=== PATIENT | male | born 1980 | race Caucasian/White ===

== ENCOUNTER → 2020-11-23 15:41 | Outpatient (CLI) | payer OTHER, SELFPAY ==
--- NOTE | ~2020-11-23 | CT_ITS ---
EXAMINATION: CT sinus wo con DATE: 11/23/2020 15:52 INDICATION: Nasal congestion. Deviated nasal septum. TECHNIQUE: Computed tomography (CT) of the paranasal sinuses was performed without intravenous contra st. The dose-length product was 314.51 mGy-cm. Automated exposure control and iterative reconstructio n technique were employed. COMPARISON: CT dated 07/13/2010 FINDINGS: Rightward nasal septal deviation. There is mild mucosal thickening of the ethmoid air cells and maxillary sinuses. No significant air-fluid level. No mucoperiosteal reaction. Mastoids are pneu matized. Ostiomeatal units are patent. IMPRESSION: 1. Mild sinus disease primarily involving the ethmoid and maxillary sinuses. 2: Rightward nasal septal deviation. Reviewed, dictated and finalized at location A.
== END ==
PROVIDERS: PCP Family Medicine; Visit Provider Otolaryngology
DX: J34.3 Hypertrophy of nasal turbinates (principal); J34.2 Deviated nasal septum; R09.81 Nasal congestion; J34.89 Other specified disorders of nose and nasal sinuses; R44.8 Other symptoms and signs involving general sensations and perceptions; R51.9 Headache, unspecified
CPT/HCPCS: 70486

== ENCOUNTER 2021-01-11 01:02 | Day surgery (SDC) | payer OTHER, SELFPAY ==
[2021-01-04 14:25] VITALS: BMI 24.4
--- NOTE | 2021-01-06 07:48 | PM.IMHP ---
H&P: HPI History of Present Illness Date/Time: 01/06/21 07:48 Chief Complaint: Chronic sinusitis, recurrent sinusitis, maxillary sinusitis ethmoidal sinusitis, septal deviation, inferior turbinate hypertrophy, nasal congestion, nasal obstruction. Narrative: Patient presents for planned surgical procedures. No change in symptoms no change in medical history. Review of Systems Constitutional: Constitutional: Denies fatigue, Denies fever(s) and Denies lethargy Eyes: Eyes: Denies blurry vision and Denies change in vision ENT: Reports as per HPI Cardiovascular: Cardiovascular: Denies chest pain Respiratory: Respiratory: Denies cough Endocrine: Endocrine: Denies fatigue Hematologic/Lymphatic: Hematologic/Lymphatic: Denies easy bleeding, Denies easy bruising and Denies lymphadenopathy Allergic/Immunologic: Allergic/Immunologic: Denies seasonal rhinorrhea PENDING SALE TO [facility] Past Medical History Medical History Attention deficit disorder (ADD) in adult Social History Social History Years smoked: 10 Smoking status: Former smoker Tobacco type: cigarettes Smoking end date: 01/05/16 Alcohol intake: current Drinks per week: 10 Living arrangements: with family Spiritual care concerns: No Meds Home Medications and Allergies Home Medications Medication Instructions Recorded Confirmed Type fluticasone propionate 50 2 spray INTRANASAL BID #16 ml 10/20/20 01/04/21 Rx mcg/actuation nasal spray,suspension dextroamphetamine-amphetamine 10 10 mg PO BID #60 tablet 12/31/20 01/04/21 Rx mg tablet Allergies Allergy/AdvReac Type Severity Reaction Status Date / Time Penicillins Allergy Unknown Unknown Verified 01/04/21 14:18 Exam Const: General: cooperative, healthy appearing, comfortable, well developed and alert HENMT: Head: normal to inspection, normocephalic and atraumatic Ears: hearing grossly normal bilaterally, external ears normal, TM's normal bilaterally and EAC's normal General nose exam: Normal external nose present, Normal nares present, No nasal polyps present and Other nasal findings present ( Inferior turbinate hypertrophy septal deviation.) Face and sinus: normal facial exam Mouth: Yes Normal oral and palatal mucosa present, Yes lip normal, Yes tongue normal, Yes oropharynx normal and Yes moist mucous membranes Teeth and gingiva: dentition normal and gingiva normal Throat: posterior oropharynx normal, tonsils normal and uvula midline Eyes: General: appearance normal, both eyes and all related structures Periorbital: periorbital findings normal Eyelids: eyelids normal Conjunctivae: conjunctivae normal Sclera: sclerae normal Neck: Neck: normal visual inspection, full ROM and no lymphadenopathy Thyroid: thyroid normal Lymphatic: no lymphadenopathy noted Resp: Effort & Inspection: normal respiratory effort and able to speak in complete sentences Cardio: Jugular venous distension: no JVD Neuro: Cranial nerves: Yes CN's II-XII intact bilaterally Assessment and Plan Assessment and plan (1) Hypertrophy of both inferior nasal turbinates: Code(s): J34.3 - Hypertrophy of nasal turbinates Status: Acute Assessment and Plan: plan is for the OR for image guided bilateral maxillary antrostomies total ethmoidectomies inferior turbinate reduction with outfracture submucosally and endoscopic assisted septoplasty total operative time 1.5 hours. Risks were discussed with the patient including obvious costs bleeding infection postoperative bleeding postoperative pain failure to resolve symptoms of migraine variant CSF leak brain damage blindness change in vision need for further procedures. Patient voiced understanding of these risks and agreed septal perforation was also discussed. Will need the image guided microdebrider. (2) Nasal septal deviation: Code(s): J34.
--- NOTE | 2021-01-10 16:17 | P.PNAN_ITS ---
Anes - Initial Pre Proc Eval Procedure: Operation Date: 01/11/21 07:30 Proposed Procedures p Endoscopic Septoplasty - Placido Yanez MD s CT Guided Total Ethmoidectomy, Bilateral Inferior Turbinectomy, Bilateral Maxillary Antrostomy - Placido Yanez MD Date/Time: 01/10/21 16:17 Surgeon: Placido Yanez MD Pre Op Diagnosis: Chronic Sinusitis Patient Data Age: 40 Gender: M Height: 1.91 m Weight: 88.6 kg Allergies Allergy/AdvReac Type Severity Reaction Status Date / Time Penicillins Allergy Unknown Unknown Verified 01/04/21 14:18 Home Medications Medication Instructions Recorded Confirmed Type fluticasone propionate 50 2 spray INTRANASAL BID #16 ml 10/20/20 01/04/21 Rx mcg/actuation nasal spray,suspension dextroamphetamine-amphetamine 10 10 mg PO BID #60 tablet 12/31/20 01/04/21 Rx mg tablet Patient hx anesthesia problems: none Family hx anesthesia problems: none Results Review: All pre-operative results and documents have been reviewed as part of the pre-operative evaluation. [facility] Past Medical History Medical History Attention deficit disorder (ADD) in adult Social History Social History Years smoked: 10 Smoking status: Former smoker Tobacco type: cigarettes Smoking end date: 01/05/16 Alcohol intake: current Drinks per week: 10 Living arrangements: with family Spiritual care concerns: No Anes - Eval Final PreProcedure Day of Procedure 01/10/21 16:17 Patient weight: normal Heart: regular rate and rhythm Lungs: clear to auscultation and normal air movement Airway: Mallampati scale class II Neurological: alert and oriented Last oral intake: >/= 8 hours ASA classification: II Emergent: no Anesthetic plan: proceed Anesthesia type and monitoring: general ETT Results Review: All pre-operative results and documents have been reviewed as part of the pre-operative evaluation. Informed Consent: The patient's anesthetic plan and its attendant risks and benefits were discussed with the patient/family/POA. Questions were solicited and answers provided to the satisfaction of the patient/family/POA.
[2021-01-11] VITALS (7 sets, daily range): BP systolic 121–160; BP diastolic 79–106; PULSE 73–94; RESP 10–18; TEMP 36.3–36.4; O2SAT 94–100
[2021-01-11] MEDS: ACETAMINOPHEN 500 MG TABLET 1000 MG PO (06:40)
[2021-01-11] MEDS: LACTATED RINGERS 1,000 ML 30 ML IV CONT ×2 (06:40→09:52)
--- NOTE | 2021-01-11 07:08 | WPDHPUPDATE1 ---
History and Physical Update Update Date/Time: 01/11/21 07:08 History and Physical has been reviewed, including an updated exam of the patient. There are NO changes in the patient's condition. Risks, benefits, and alternatives have been discussed and questions answered. Patient agrees to proceed with procedure.
[2021-01-11] MEDS: ceFAZolin 2 GM/D5W 50 ML 2 GM/50 ML BAG IVPB (07:25)
[2021-01-11] MEDS: OXYMETAZOLINE HCL 0.05% NAS 15 ML BTL (*BKC) 1 SPRAY NASAL (07:42)
[2021-01-11] MEDS: LIDO 1%/EPINEPHRINE 1:100,000 50 ML VIAL INFILTRATE (08:32)
--- NOTE | 2021-01-11 09:32 | W.PM.PROC2 ---
Procedure Note - Detailed Date of Procedure 01/11/21 Pre-op Diagnosis Chronic Sinusitis, recurrent sinusitis, nasal congestion, nasal obstruction, inferior turbinate hypertrophy, septal deviation Post-op Diagnosis same Procedure Performed 1. Bilateral endoscopic image guided maxillary antrostomies 2. Bilateral endoscopic image guided total ethmoidectomies 3. Endoscopic assisted septoplasty 4. Bilateral inferior turbinate submucosal resection with outfracture Surgeon Placido Yanez MD Piping Drafter None Anesthesia general Indications See above Findings Severely bilateral deviated septum left inferior right superior small per from the right with no concomitant perform the left following septoplasty. Good turbinate reduction. Mucoid purulence in the right posterior ethmoid air cell. Description of Procedure The patient was correctly identified thin verified in the preoperative holding area. Patient was then brought to the operating room time-out performed. General anesthesia was induced and endotracheal tube was secured the patient's airway and taped to the left lower lip. Image guidance was initiated. Patient was then prepped and draped for the aforementioned procedures. Second time-out performed. Afrin-soaked pledgets placed in the bilateral nasal passages and allowed to sit for 5 minutes then removed. The septum was so deviated which was visible with 0 degree endoscope that the septoplasty was performed 1st. 8 cc 1% lidocaine with 1 100,000 parts epinephrine injected in the bilateral septum in the mucoperichondrial plane. Alleene incision made left on on the left. Left-sided mucoperichondrial flap elevated with no perforation septum crossed over with caudal right side elevated small perf on the right. Deviated septum removed with Venancio Coleman forceps deep blade 15 blade osteotome and Cordelia forceps. Very very good correction following procedure with no perforations bilaterally. Anterior bony septum was trimmed using osteotome as well as placed in the midline using [place] elevator. Maxillary antrostomies were performed bilaterally using double ball tip probe following medialization of the middle turbinates double ball tip probe as well as straight through cut backbiter and microdebrider with Tri cut blade which was also image guided. The total ethmoidectomies were performed under image guidance using Sophiris Biorison microdebrider Cordelia forceps. All the air cells were opened. This was performed bilaterally. Of note on the right side there was purulence and mucus in 1 of the posterior ethmoid air cells. The skull base and orbits were not violated. This was confirmed with image guidance as well as endoscopically. Turbinates were entered the inferior turbinates were entered bilaterally they were entered anteriorly using the 2 mm turbinate blade on the microdebrider. They were debrided in the submucosal plane and then outfractured using the [place] elevator. Good reduction was noted. Of note the bilateral inferior turbinates had significant mulberry tips these were cauterized using suction Bovie electrocautery at a setting of 15. Palm splints were placed and endoscopically placed lateral to the middle turbinates. They were sutured anteriorly using a 3-0 mattress nylon suture. Prior to the placement of the Palm splints the Alleene incision on the left of the septum was closed using 3 interrupted 5 0 fast gut sutures. The bilateral nasal passages were suctioned the posterior choana. Hemostasis was excellent. This marked end of the procedure care of the patient was turned over to Anesthesiology. Total blood loss 20 cc. I performed all dictated portions of the procedure. There were no complications. Estimated Blood Loss 20 Drains No Packing No Pathology none sent Complications No immediate complications Condition stable Disposition PACU
[2021-01-11] MEDS: fentaNYL CITRATE INJ (*CRX) 100 MCG/2 ML VIAL 25 MCG IV PUSH ×4 (09:48→10:10)
--- NOTE | 2021-01-11 10:13 | SUR.PHASEI ---
Dr. Ruggiero notified of elevated BP and said to continue to monitor at this time.
== END 2021-01-11 11:00 | disposition home or self-care (01) ==
PROVIDERS: PCP Family Medicine; Visit Provider Otolaryngology
PROC: (CPT 30520; principal; 2021-01-11 07:30)
PROC: (CPT 30140; 2021-01-11 07:30)
DX: J32.9 Chronic sinusitis, unspecified (principal); J34.3 Hypertrophy of nasal turbinates; J34.2 Deviated nasal septum; J34.89 Other specified disorders of nose and nasal sinuses; R09.81 Nasal congestion; F98.8 Other specified behavioral and emotional disorders with onset usually occurring in childhood and adolescence; Z87.891 Personal history of nicotine dependence
CPT/HCPCS: 30140; 30520; 31256; 31255; 61782; A9270; J0330; J0690; J1100; J2001; J2250; J2405; J2704; J3010; J7120

== ENCOUNTER → 2021-07-05 10:43 | Outpatient (CLI) | payer OTHER, SELFPAY ==
--- NOTE | ~2021-07-05 | US_ITS ---
EXAMINATION: US abdomen complete EXAM DATE: 07/05/2021 11:08 INDICATION: R74.8 - Abnormal levels of other serum enzymes. TECHNIQUE: Multiple grayscale and Doppler images of the complete abdomen were obtained (by a technolo gist who performed the scan) and subsequently reviewed. There is no prior study for comparison. FINDINGS: The abdominal aorta is normal in caliber. Visualized portion IVC is patent. The pancreatic head a nd body are normal in appearance. The pancreatic tail is not visualized. There is echogenic liver parenchyma, hepatic steatosis. There are no focal liver lesions identified. There is no evidence of intrahepatic biliary duct dilation. Portal venous flow was seen in the he patopedal, normal direction and has normal Doppler waveform. Common bile duct measures 4 mm, which is normal. The gallbladder wall is normal in thickness, with ex pected amount of distention. No sonographic evidence of pericholecystic fluid. There is no cholelit hiases. Technologist performing exam reports patient did not demonstrate sonographic Guillen's sign. Please note that this sign is less reliable in patients who have received pain medication. Right kidney: There is normal contour and echogenicity. It measures 13.4 x 4.6 x 5.1 centimeters. There are no focal renal lesions identified. There is no hydronephrosis. Left kidney: There is normal contour and echogenicity. It measures 11.7 x 5.8 x 6.1 centimeters. T here are no focal renal lesions identified. There is no hydronephrosis. The spleen measures 11 centimeters and is morphologically normal. IMPRESSION: 1. Hepatic steatosis. Reviewed, dictated and finalized at location A. IMPRESSION: 1. Hepatic steatosis.
== END ==
PROVIDERS: PCP Family Medicine; Visit Provider Family Medicine
DX: K76.0 Fatty (change of) liver, not elsewhere classified (principal)
CPT/HCPCS: 76700

== ENCOUNTER 2021-07-05 11:55 | Inpatient (IN) | payer OTHER, SELFPAY ==
[2021-07-05] VITALS (27 sets, daily range): BP systolic 107–154; BP diastolic 78–104; PULSE 63–140; RESP 15–33; TEMP 36.5–37.1; O2SAT 94–100; BMI 25.0
--- NOTE | ~2021-07-05 | XR_ITS ---
EXAM: XR abdomen NG/feed tube insert HISTORY: OG insertion COMPARISON: None available FINDINGS: Left medial basal atelectasis/consolidation. Nasogastric tube, tip and side port projectin g over the stomach. Partially visualized bowel gas pattern is grossly normal. Regional bones and soft tissues normal for age. IMPRESSION: NG tube, in good position. Reviewed, dictated and finalized at location K. IMPRESSION: NG tube, in good position.
--- NOTE | ~2021-07-05 | XR_ITS ---
EXAMINATION: XR chest 1V portable EXAM DATE: 07/07/2021 05:38 INDICATION: Intubated TECHNIQUE: Portable AP frontal chest x-ray was obtained. Comparison is made to prior examination from 07/06/2021. FINDINGS: Endotracheal tube tip is 5 centimeters above the kathryn. There is a nasogastric tube seen with tip collimated off the study, but below the left hemidiaphragm. There is scattered subsegmental bibasilar basilar atelectasis or pneumonia. There are no sizable ple ural effusions. There is no pneumothorax suspected. Cardiomediastinal silhouette is normal. The bones and soft tissues are unremarkable. There is no significant interval change compared to prior exam. IMPRESSION: 1. Tubes in position. 2. Bibasilar subsegmental atelectasis or pneumonia. Reviewed, dictated and finalized at location A.
--- NOTE | ~2021-07-05 | CT_ITS ---
EXAMINATION: CT brain wo con DATE: 07/05/2021 21:50 INDICATION: AMS TECHNIQUE: Computed tomography (CT) of the head was performed without intravenous contrast. The mA wa s adjusted according to patient size. Iterative reconstruction technique was employed. The dose-lengt h product was 681.00 mGy-cm. COMPARISON: None FINDINGS: No acute intracranial hemorrhage or extra-axial fluid collection. No hydrocephalus, mass, or herniation. No acute ischemic infarct. Unremarkable dural venous sinus attenuation. No acute osseous abnormality. Ethmoid and bilateral maxillary sinus mucosal thickening, air-fluid level in the left medullary sinus , otherwise the aerated spaces are clear. IMPRESSION: No acute intracranial process. Acute sinusitis. Reviewed, dictated and finalized at location K.
--- NOTE | ~2021-07-05 | XR_ITS ---
r EXAMINATION: XR chest ET placement Exam Date/Time: 07/05/2021 18:25 CDT CLINICAL HISTORY: After intubation to confirm ET placement Comparison: None available. RESULT: Lines, tubes, and devices: Endotracheal tube, terminating 4 cm above the kathryn. Nasogastric tube te rminates off the inferior margin of the image. Lungs and pleura: Subsegmental somewhat linear-appearing left medial basal opacity. Cardiomediastinal silhouette: Grossly normal cardiomediastinal silhouette. Other: No acute osseous or upper abdominal finding. IMPRESSION: Endotracheal tube, in good position. Left medial basal atelectasis/consolidation. Reviewed, dictated and finalized at location K. IMPRESSION: Endotracheal tube, in good position. Left medial basal atelectasis/consolidatio n.
--- NOTE | ~2021-07-05 | XR_ITS ---
EXAMINATION: XR chest 1V portable EXAM DATE: 07/06/2021 05:58 INDICATION: Intubated. TECHNIQUE: Portable AP frontal chest x-ray was obtained. Comparison is made to prior examination from 07/05/2021. FINDINGS: Endotracheal tube tip is 5.5 centimeters above the kathryn. There is a nasogastric tube see n with tip collimated off the study, but below the left hemidiaphragm. There is scattered subsegmental left basilar atelectasis or pneumonia. There are no sizable pleural effusions. There is no pneumothorax suspected. Cardiomediastinal silhouette is normal. The bones and soft tissues are unremarkable. There is no significant interval change compared to prior exam. IMPRESSION: 1. Tubes in position. 2. Left basilar subsegmental atelectasis or pneumonia. Reviewed, dictated and finalized at location A.
--- NOTE | ~2021-07-05 | XR_ITS ---
EXAMINATION: XR chest 1V portable EXAM DATE: 07/08/2021 05:55 INDICATION: Extubated. TECHNIQUE: Portable AP frontal chest x-ray was obtained. Comparison is made to prior examination from 07/07/2021. FINDINGS: Endotracheal tube has been removed. Nasogastric tube has been removed. Scattered regions of subsegmental basilar atelectasis or pneumonia. Please clinically correlate. No pneumothorax or pleur al effusion. Cardiomediastinal silhouette is normal. IMPRESSION: Patchy bibasilar atelectasis an/or pneumonia unchanged. Reviewed, dictated and finalized at location A.
--- NOTE | 2021-07-05 12:25 | ED.PSYCH ---
HPI - Psych General Chief Complaint: Psychiatric Symptoms Stated Complaint: psychiatric evaluation, hallucinations, anxiety Time Seen by Provider: 07/05/21 12:22 Source: patient Mode of arrival: ambulatory Limitations: no limitations History of Present Illness HPI Narrative: Patient is a 40-year-old male with a history of anxiety, depression, alcohol abuse, presenting to the emergency department for evaluation of increased anxiety, tremulousness over the past 4 days. Patient reports that he has had auditory hallucinations over the past several months. Patient states that they seem to increase in frequency and severity over the past 6 months where he would occasionally endorse hearing music playing or hear the garage door opening. Patient states that he was recently started on Abilify on June 24 by his primary care physician in order to help the symptoms, and that dose was increased July 01. Patient states that he has had worsening on the Abilify. He reports visual hallucinations, auditory hallucinations, increased anxiety, sleeplessness. Patient endorses only sleeping maybe 2 to 4 hours at night. He reports decreased oral intake secondary to his symptoms. He denies homicidal or suicidal ideation. Patient states he typically drinks 10-14 drinks of alcohol weekly, but states that he has not had any alcohol in 4 days. He denies history of alcohol withdrawal or seizure activity. He denies any significant pain at this point. Denies fever, chills, chest pain, shortness of breath. Patient was seen by his primary care provider and had a liver ultrasound today because he had elevated LFTs and his history of alcohol abuse. Patient and family then presented to the emergency department. Patient states he has an appointment with psychiatrist Dr. Hernandez August 04. Patient's states that she was concerned that he would not do well waiting that long until an appointment given the severity of his symptoms. Patient states that at times he believes people have entered his house. While I am in the room speaking with him at times he talks about the show Sunday night live, then speaks about difficulty looking people in the eye with conversations, then will jump to a different subject. At times he is directable. Related Data Home Medications Medication Instructions Recorded Confirmed ascorbate calcium (vitamin C) 500 500 mg PO DAILY 06/24/21 06/30/21 mg tablet clomiphene citrate 50 mg tablet 25 mg PO DAILY 06/24/21 06/30/21 multivitamin 1 tablet PO DAILY 06/24/21 06/30/21 Allergies Allergy/AdvReac Type Severity Reaction Status Date / Time Penicillins Allergy Unknown Unknown Verified 06/30/21 08:59 Review of Systems Review of Systems: CONSTITUTIONAL: Denies fever, chills, or sweats. Reports tremulousness. EYES: Denies visual changes, redness, or discharge. ENT: Denies rhinorrhea, congestion, sore throat, or otalgia. CARDIOVASCULAR: Denies chest pain, palpitations, or edema. RESPIRATORY: Denies cough or dyspnea. GASTROINTESTINAL: Denies abdominal pain, reports nausea, denies diarrhea GENITOURINARY: Denies dysuria or hematuria. SKIN: Denies rash or itching. MUSCULOSKELETAL: Denies back pain, joint pain, or myalgia. NEUROLOGIC: Denies headache, numbness, or weakness. PSYCHIATRIC: Reports anxiety, depression, auditory hallucinations, visual hallucinations PMFSH Past Medical History Medical History (Updated 07/05/21 @ 19:16 by Niesha Jean MD) Anxiety related tremor Attention deficit disorder (ADD) in adult BPH w urinary obs/LUTS Elevated liver enzymes Hypomanic bipolar II disorder Insomnia Irritable bowel syndrome Lipoma of anterior chest wall Migraine NOS/intractable Ongoing treatment with hormonal therapy Recurrent sinusitis Surgical History Surgical History History of nasal septoplasty Social History Social History (Reviewed 06/30/21 @ 09:00 by Rachel Villalta
--- NOTE | 2021-07-05 12:39 | PC.NURSE ---
Pt states his dose of abilify was increased approximately 1 week ago to 20 mg PO daily. Pt reports Hallucinations, increased anxiety, night terrors, and bizzare behaviors per . Pt states pt believed Obfranca and Biden were in their house the other night. Pt reportedly called the police the other night believing he was in a car accident. 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 Pt drinks approx 10-14 drinks per week. Pt denies command AVH but states he does see things and is actively seeing them at this time. Pt has a psychiatrist appt in July and family and pt request psychiatric evaluation. pt moved to room 9, report given to Rich Helton and NATIVIDAD Mayfield.
--- NOTE | 2021-07-05 13:04 | ECG_ITS ---
Measurements Intervals [place] Rate: 82 P: 75 WI: 182 QRS: 61 QRSD: 94 T: 61 QT: 353 QTc: 414 Interpretive Statements SINUS RHYTHM BASELINE ARTIFACT POSSIBLE LEFT ATRIAL ENLARGEMENT [-0.1mV P WAVE IN V1/V2] POSSIBLE RIGHT VENTRICULAR CONDUCTION DELAY [RSR (QR) IN V1/V2] BORDERLINE ECG NO PREVIOUS ECG AVAILABLE FOR COMPARISON Electronically Signed On 07-05-2021 15:01:54 CDT by Brendan Armas M.D.
[2021-07-05] MEDS: THIAMINE HCL 100 MG TABLET PO (13:20)
[2021-07-05] MEDS: LORazepam INJ (*CRX) 2 MG/ML VIAL IM (13:20)
[2021-07-05 13:24] LABS: Basophils Percent Auto 0.3 % (0.2-1.2); Eosinophils Absolute Auto 0.1 K/mm3 (0-0.3); Eosinophils Percent Auto 0.8 % (0-4.4); Hematocrit 45.5 % (42.0-52.0); Hemoglobin 14.7 g/dL (14.0-18.0); Immature Granulocyte Absolute 0.06 K/mm3 (0.00-0.031); Immature Granulocyte Percent A 0.6 % (0-0.5); Lymphocytes Absolute Auto 2.24 K/mm3 (0.9-3.2); Lymphocytes Percent Auto 22.9 % (18.3-44.2); Mean Corpuscular HGB Conc 32.3 g/dl (32-36); Mean Corpuscular Hemoglobin 32.2 pg (26-34); Mean Corpuscular Volume 99.8 fl (80-100); Mean Platelet Volume 9.6 fl (7.4-10.4); Monocytes Absolute Auto 1.4 K/mm3 (0.1-0.6); Monocytes Percent Auto 13.8 % (2.6-8.5); Neutrophils Percent Auto 61.6 % (45.5-73.1); Platelet Count Result 268 k/mm3 (150-375); Red Blood Count 4.56 M/mm3 (4.6-6.20); Red Cell Distribution Width 12.7 % (11.5-14.5); White Blood Count 9.8 K/mm3 (4.5-10.0)
[2021-07-05 13:33] LABS: Ethanol < 10 mg/dL (<10)
[2021-07-05 13:52] LABS: Alanine Aminotransferase 198 U/L (4-50); Alkaline Phosphatase 73 U/L (38-126); Anion Gap 9 mmol/L (8-16); Aspartate Amino Transferase 274 U/L (17-59); Bilirubin,Total 0.8 mg/dL (0.2-1.3); Blood Urea Nitrogen 12 mg/dL (9-20); Calcium 9.4 mg/dL (8.4-10.2); Carbon Dioxide 29 mmol/L (22-30); Chloride 103 mmol/L (98-107); Estimated CRCL calculation 147 ml/min; Estimated Glomerular Filt Rate > 60; Glucose 110 mg/dL (65-110); Potassium 4.3 mmol/L (3.4-5.0); Sodium 141 mmol/L (137-145)
[2021-07-05 13:52] LABS: Amphetamine Screen Urine Positive (Negative); Barbiturate Screen Urine Negative (Negative); Benzodiazepines Screen Urine Negative (Negative); Cannabinoid Screen Urine Positive (Negative); Cocaine Screen Urine Negative (Negative); Methadone Screen Urine Negative (Negative); Opiate Screen Urine Negative (Negative); Phencyclidine Screen Urine Negative (Negative)
[2021-07-05 13:55] LABS: Appearance Urine Clear (Clear); Bilirubin Urine 1+ (Negative); Blood Urine Negative (Negative); Glucose Urine UA Negative (Negative); Ketones Urine Trace mg/dL (Negative); Leukocyte Esterase Ur Negative LEU/UL (Negative); Nitrate Urine Negative (Negative); Protein Urine 1+ mg/dL (Negative); Specific Grav Ur >= 1.030 (1.001-1.035); Urobilinogen Urine 0.2 mg/dL (<2.0); pH Urine 5.5 (5.0-9.0)
[2021-07-05 14:06] LABS: Mucus Urine Moderate /lpf; RBC Urine 0-2 /hpf (0-2); Squamous Epithelial Cell Urine Rare /hpf (Few); WBC Urine 0-3 /hpf
--- NOTE | 2021-07-05 14:14 | PC.NURSE ---
pt continues to have tremors. is able to have short conversations but then pt has flight of ideas and picking stuff of bedsheets.
[2021-07-05 14:20] LABS: Add Urine Microscopic? YES; Color Urine Dark Yellow (Yellow)
[2021-07-05] MEDS: FOLIC ACID 1 MG TABLET PO (14:48)
[2021-07-05] MEDS: SODIUM CHLORIDE 0.9% IV 1,000 ML 999 ML IV CONT ×2 (14:57→18:00)
[2021-07-05] MEDS: LORazepam INJ (*CRX) 2 MG/ML VIAL 1 MG IV PUSH ×2 (14:58→16:16)
[2021-07-05 15:34] LABS: SARS-CoV-2 RNA PCR Negative
--- NOTE | 2021-07-05 16:30 | PC.NURSE ---
pts mckenzie cell phone [phone]
--- NOTE | 2021-07-05 16:30 | PC.NURSE ---
pt attempting to eat pulse ox and climb out of bed. wanting to leave to check on child. pt placed on bed alarm and sitter at bedside.
[2021-07-05] MEDS: HALOPERIDOL LACTATE 5 MG/ML VIAL IV PUSH (16:39)
[2021-07-05] MEDS: LORazepam INJ (*CRX) 2 MG/ML VIAL IV PUSH (16:39)
[2021-07-05 17:30] LABS: Magnesium 2.6 mg/dL (1.6-2.3)
[2021-07-05 17:41] LABS: Glucose Point of Care 95 mg/dl (65-105)
[2021-07-05] MEDS: dexmedeTOMIDine 400 MCG/100 ML 400 MCG/100 ML BAG 11.33 MCG IV CONT (17:51)
--- NOTE | 2021-07-05 18:00 | PC.NURSE ---
pts contacted and updated about pts worsening condition. made aware pt transported to icu 9
[2021-07-05] MEDS: PROPOFOL IV EMULSION 100 ML 27.18 MG IV CONT ×2 (18:30→21:16)
[2021-07-05] MEDS: MIDAZOLAM 100MG/NS 100ML(*CRX) 100 MG/100 ML BAG IV CONT (18:30)
--- NOTE | 2021-07-05 19:04 | ADMGEN ---
This patient, Cristobal Wiley, was admitted to Intensive Care Unit-6. Patient/family oriented to hospital policies and general routines including ID bracelet, bed and alarms, visiting hours, pain management, procedures, bathroom and other care routines, personal items, smoking policy, room service/diet, and visiting hours. Information on how to activate the Rapid Response Team has been discussed. Patient/Family are encouraged to report perceived risks to care and to ask questions if they do not understand what they are told or what they should do.
[2021-07-05] MEDS: SODIUM CHLORIDE 0.9% IV 1,000 ML 125 ML IV CONT (19:30)
--- NOTE | 2021-07-05 19:43 | PC.NURSE ---
Patient arrived to the unit was hallucinating, diaphoretic, extremely combative. Patient O2 sats starting dropping and patient became unresponsive. Patient was intubated by RILEY Adkins. Patient tolerated proedure well and is in stable condition.
[2021-07-05 19:50] LABS: Alveolar/Arterial O2 Gradient 262.7 mmHg; Base Excess ABG -1.7 mEq/l (+/-2.0); Carboxyhemoglobin 0.3 % THb (0-2.0); Device VENTILATOR; Fractional Inspired Oxygen 100 %; Methemoglobin ABG 0.5 %THb (0-1.5); Modified Allen's Test Pass; Oxygen Saturation ABG 99.8 % (95.0-100.0); Oxyhemoglobin 98.2 % THb (90.0-100.0); PCO2 ABG 38.9 mmHg (35.0-45.0); PO2 ABG 411.4 mmHg (80.0-100.0); PO2 FiO2 Ratio Arterial Blood 4.11 %; Site Drawn LEFT RADIAL; Total Hemoglobin 13.7 g/dL (12.0-18.0)
[2021-07-05 19:52] LABS: Arterial Blood Gas PEEP 5 cmH2O; Arterial Blood Gas Tidal Volume 400 ml; Arterial Blood Gas Vent Mode CMV; Arterial Blood Gas Ventilator rate 20 /MIN
--- NOTE | 2021-07-05 19:59 | PM.IMHP ---
H&P: HPI History of Present Illness Date/Time: Patient requires inpatient monitoring with expected length of stay to exceed 2 midnights for management of care. 07/05/21 19:59 Chief Complaint: Altered mental status Narrative: Mr. Wiley is a 40-year-old gentleman who presented emergency room with auditory hallucinations. This time all history is coming from patient's spouse because patient is now intubated and sedated. Patient had been seen by his primary care off iron 06/24/2021 for depression. Patient had been on fluoxetine and this was not working so patient was then placed on Abilify 10 mg daily. Patient's spouse states the patient had been drinking daily up until the Abilify was started and then she witnessed him throwing away all of his alcohol. Patient's spouse states that on 06/30/2021 patient continued to have depression and patient's Abilify was increased to 20 mg daily. Patient's spouse states that after that he began having difficulty sleeping and having night terrors. Patient's spouse states at 1 point that he did wake up in the middle night and call the police because he was having such night terrors. Patient spouse states that on the , , and patient did begin drinking again. Patient's spouse states that she knew was he was drinking at minimum 2 shots of whiskey a day, but she states when she would put 3rd child to bed she is unsure how much she would drink. Patient's spouse states that on the he quit drinking a and continue to have vivid dreams and night terrors. Patient's spouse states on Sunday of this week she asked how he was feeling he stated that he felt very clear and the head, but then began having nausea and shakiness on the . Patient had recently been seen by his primary care provider was noted to have elevated LFTs and he was sent for ultrasound of his liver today. Patient was then brought to emergency room by his family because he was having flight of ideas, hallucinations, and shaking. Upon evaluation in emergency room initially patient was alert and oriented, but was having tremors and hallucinating. As time progressed patient became very confused and started having extreme tremors and diaphoresis. After speaking with the hemodialysis charge nurse was decided patient to be placed in the ICU and placed on a Precedex drip. Patient is unable to give me any type of history. While patient was in the ICU on Precedex drip he began having snoring respirations and patient had to be intubated. Procedure note will follow this. Review of Systems Review of Systems: Unable to obtain a full review of systems secondary to patient's clinical condition. [facility] Past Medical History Medical History (Updated 07/05/21 @ 20:12 by Diane Adkins APRN) Anxiety related tremor Attention deficit disorder (ADD) in adult BPH w urinary obs/LUTS Depression Elevated liver enzymes Hypomanic bipolar II disorder Insomnia Irritable bowel syndrome Lipoma of anterior chest wall Migraine NOS/intractable Ongoing treatment with hormonal therapy Recurrent sinusitis Surgical History Surgical History History of nasal septoplasty Social History Social History Smoking packs per day: 1 Smoking cigarettes per day: 20.0 Years smoked: 3 Smoking pack-years: 3.00 Smoking status: Former smoker Tobacco type: cigarettes Smoking end date: 01/05/16 Alcohol intake: current Drinks per week: 14 Substance use: current Other substance usage details: CBD gummies Spiritual care concerns: No Meds Home Medications and Allergies Home Medications Medication Instructions Recorded Confirmed Type dextroamphetamine-amphetamine 10 10 mg PO BID #60 tablet 02/24/21 06/30/21 Rx mg tablet propranolol 10 mg tablet See Rx Instructions .ROUTE 06/14/21 06/30/21 Rx .COMPLEX #30 tablet aripiprazole 10 mg tablet
[2021-07-05 20:07] LABS: Ammonia 12 umol/L (9-30); Lipase 392 U/L (23-300)
[2021-07-05 20:09] LABS: INR 1.2; Partial Thromboplastin Time 25.8 SECONDS (22.3-36.8); Prothrombin Time 14.9 Seconds (11.1-14.7)
--- NOTE | 2021-07-05 20:14 | WPDPROCEDUR ---
Procedures Intubation Intubation Date: 07/05/21 Intubation Time: 18:00 A pre-procedural Time-Out was completed immediately before starting the procedure and confirmed: Patient Identification, Site, Procedure, Patient Position and the Availability of Requisite Equipment: Yes Sedative: etomidate Mg given: 20 Paralytic: succinylcholine Mg given: 100 Laryngoscope: fiber optic video scope ET tube size: 7.5 Tube secured depth (cm): 27 Tube secured location: lips Tube placement confirmation: visualized tube passing through cords, equal breath sounds bilaterally and confirmation by capnometry Patient tolerated procedure: well Intubation complications: none
[2021-07-05] MEDS: FAMOTIDINE 20 MG/2 ML VIAL IV PUSH (21:10)
[2021-07-05] MEDS: ENOXAPARIN 40 MG/0.4 ML SYRINGE SUB-Q (21:10)
[2021-07-06] VITALS (38 sets, daily range): BP systolic 125–146; BP diastolic 76–105; PULSE 58–97; RESP 18–24; TEMP 36.9–38.8; O2SAT 96–100; BMI 25.3
[2021-07-06] MEDS: PROPOFOL IV EMULSION 100 ML 27.18 MG IV CONT ×7 (00:36→23:30)
[2021-07-06 04:10] LABS: Basophils Percent Auto 0.4 % (0.2-1.2); Eosinophils Absolute Auto 0.1 K/mm3 (0-0.3); Eosinophils Percent Auto 1.3 % (0-4.4); Hematocrit 42.5 % (42.0-52.0); Hemoglobin 13.4 g/dL (14.0-18.0); Immature Granulocyte Absolute 0.03 K/mm3 (0.00-0.031); Immature Granulocyte Percent A 0.4 % (0-0.5); Lymphocytes Absolute Auto 2.19 K/mm3 (0.9-3.2); Lymphocytes Percent Auto 27.5 % (18.3-44.2); Mean Corpuscular HGB Conc 31.5 g/dl (32-36); Mean Corpuscular Hemoglobin 32.7 pg (26-34); Mean Corpuscular Volume 103.7 fl (80-100); Mean Platelet Volume 10.7 fl (7.4-10.4); Monocytes Absolute Auto 1.4 K/mm3 (0.1-0.6); Neutrophils Absolute Auto 4.3 K/mm3 (1.3-6.7); Neutrophils Percent Auto 53.4 % (45.5-73.1); Platelet Count Result 182 k/mm3 (150-375); Red Cell Distribution Width 12.9 % (11.5-14.5)
[2021-07-06] MEDS: SODIUM CHLORIDE 0.9% IV 1,000 ML 125 ML IV CONT ×3 (04:22→20:13)
[2021-07-06 04:23] LABS: Alanine Aminotransferase 163 U/L (4-50); Albumin Level 3.9 g/dL (3.5-5.1); Alkaline Phosphatase 63 U/L (38-126); Anion Gap 6 mmol/L (8-16); Aspartate Amino Transferase 200 U/L (17-59); Bilirubin,Total 0.6 mg/dL (0.2-1.3); Blood Urea Nitrogen 8 mg/dL (9-20); Calcium 8.4 mg/dL (8.4-10.2); Carbon Dioxide 24 mmol/L (22-30); Chloride 111 mmol/L (98-107); Estimated CRCL calculation 170 ml/min; Estimated Glomerular Filt Rate > 60; Glucose 82 mg/dL (65-110); Magnesium 2.6 mg/dL (1.6-2.3); Potassium 3.8 mmol/L (3.4-5.0); Sodium 141 mmol/L (137-145)
[2021-07-06 05:26] LABS: Alveolar/Arterial O2 Gradient 73.4 mmHg; Carboxyhemoglobin 0.3 % THb (0-2.0); Fractional Inspired Oxygen 35 %; HCO3 ABG 24.6 mEq/l (22.0-26.0); Methemoglobin ABG 0.3 %THb (0-1.5); Oxygen Content ABG 19.8 %vol (16.0-22.0); Oxygen Saturation ABG 98.4 % (95.0-100.0); Oxyhemoglobin 97.4 % THb (90.0-100.0); PCO2 ABG 44.3 mmHg (35.0-45.0); PO2 ABG 124.7 mmHg (80.0-100.0); PO2 FiO2 Ratio Arterial Blood 3.56 %; Total Hemoglobin 14.3 g/dL (12.0-18.0); pH ABG 7.363 (7.350-7.450)
[2021-07-06 05:27] LABS: Device VENTILATOR; Modified Allen's Test Pass; Site Drawn LEFT RADIAL
[2021-07-06 05:28] LABS: Arterial Blood Gas PEEP 5 cmH2O; Arterial Blood Gas Vent Mode CMV; Arterial Blood Gas Ventilator rate 20 /MIN
[2021-07-06 05:29] LABS: Arterial Blood Gas Tidal Volume 400 ml
[2021-07-06] MEDS: FAMOTIDINE 20 MG/2 ML VIAL IV PUSH (09:25)
[2021-07-06] MEDS: MINERAL OIL/WHITE PETROLATUM OINTMENT 1 APPLIC EACH EYE ×2 (09:30→21:51)
[2021-07-06] MEDS: MIDAZOLAM 100MG/NS 100ML(*CRX) 100 MG/100 ML BAG 6 MG IV CONT (09:51)
--- NOTE | 2021-07-06 09:55 | WPDCNINT ---
Assessment and Plan Assessment and plan (1) Acute respiratory failure: Code(s): J96.00 - Acute respiratory failure, unspecified whether with hypoxia or hypercapnia Status: Acute Assessment and Plan: Patient presented with hallucinations, delusions, flight of ideas, was started on Precedex infusion for worsening confusion, but had sonorous respirations and was intubated for airway protection -on CMV mode of ventilation, peep of 5, 35% FiO2 -chest x-ray and ABGs reviewed, will increase tidal volume patient is tall -sedated with Versed and propofol infusion -daily sedation vacation (2) Alcohol abuse with withdrawal: Code(s): F10.139 - Alcohol abuse with withdrawal, unspecified Status: Acute Assessment and Plan: Patient possibly presented with alcohol withdrawal since he had tremors, delusions and flight of idea. -patient with alcohol abuse -continue thiamine and folic acid (3) Agitation: Code(s): R45.1 - Restlessness and agitation Status: Acute Assessment and Plan: Currently intubated and sedated (4) Elevated liver enzymes: Code(s): R74.8 - Abnormal levels of other serum enzymes Status: Acute Assessment and Plan: Elevated liver enzymes likely related to alcohol liver disease -abdominal ultrasound showed hepatic steatosis -patient on IV fluids, LFTs trending down, will continue to monitor (5) Depression: Code(s): F32.A - Depression, unspecified Status: Acute Assessment and Plan: Patient history of depression, PTSD, ADD Was recently started on Abilify per Psychiatry -will continue (6) DVT prophylaxis: Code(s): Z29.9 - Encounter for prophylactic measures, unspecified Status: Acute Assessment and Plan: Enoxaparin Additional Plan Stress ulcer prophylaxis: Protonix Code status: Full code Critical care time spent: 37 minutes This dictation may have been done utilizing a voice recognition system. Attempts have been made to correct errors. However, there may be uncorrected grammatical, spelling, and recognition errors present. Due to a high probability of clinically significant, life threatening deterioration, the patient required my highest level of preparedness to intervene emergently and I personally spent this critical care time directly and personally managing the patient. This critical care time included obtaining a history; examining the patient; pulse oximetry; ordering and review of studies; arranging urgent treatment with development of a management plan; evaluation of patient's response to treatment; frequent reassessment; and discussions with other providers. It was exclusive of separately billable procedures and treating other patients and teaching time. Please see Assessment and Plan section and the rest of the note for further information on patient assessment and treatment Manager Drug Consult Note Consult date: 07/06/21 Time Seen: 07:08 Reason for consult: Psychiatric symptoms, hallucinations, alcohol withdrawal, tremors, delusion. Unable to get settled on Precedex infusion and was intubated and placed on mechanical ventilator for airway protection HPI: Cristobal Wiley is a 40 year old male with significant past medical history of anxiety related tremors, attention deficit disorder - ADD, BPH, depression, hypo or manic bipolar 2 disorder, irritable bowel syndrome, migraines of ongoing treatment with hormonal therapy presented the ED on 08/04/2021 with complains of OG hallucinations, possible alcohol withdrawal in delusions. Patient has been seen a psychiatrist depression was started on Abilify, he continued to have night terrors depression and his Abilify was increased to 20 mg daily. Patient stop drinking alcohol once he was started on Abilify a psychiatrist but he was still having tremors and night terrors and thought that the Abilify was not working he restarted drinking alcohol. Patient was brought to the ER she wa
[2021-07-06] MEDS: fentaNYL CITRATE INJ (*CRX) 100 MCG/2 ML VIAL 50 MCG IV PUSH (11:44)
[2021-07-06] MEDS: PANTOPRAZOLE SODIUM IV 40 MG VIAL IV PUSH (11:44)
[2021-07-06] MEDS: ACETAMINOPHEN ELIXIR 325 MG/10.15 ML UDC 650 MG PO ×2 (11:49→18:14)
--- NOTE | 2021-07-06 13:44 | PM.IMPN ---
Progress Note: A&P Assessment and Plan (1) Acute respiratory failure: Code(s): J96.00 - Acute respiratory failure, unspecified whether with hypoxia or hypercapnia Status: Acute Assessment and Plan: Patient presented with hallucinations, delusions and flight of ideas. Concern for alcohol withdrawal and/or psychiatric condition. He was started on Precedex infusion for worsening confusion but developed sonorous respirations and was intubated for airway protection on 07/05/21. Continue sedation with Versed and Propofol. Appreciate Hide Measuring Machine Operator input. (2) Alcohol abuse with withdrawal: Code(s): F10.139 - Alcohol abuse with withdrawal, unspecified Status: Acute Assessment and Plan: Patient presented with hallucinations with concern for alcohol withdrawal since he had tremors, delusions and flight of idea. UDS is positive for amphetamines and cannabinoids. Overdose of Adderall? Sedated now. Start thiamine and folic acid. (3) Fever: Code(s): R50.9 - Fever, unspecified Status: Acute Assessment and Plan: Fever today. UA yesterday not consistent with UTI. CXR on admission showing left medial basal airspace disease. Pneumonia? Could be aspiration. Urine culutre pending. Blood and sputum Cx ordered. Abx on hold for now. (4) Elevated liver enzymes: Code(s): R74.8 - Abnormal levels of other serum enzymes Status: Acute Assessment and Plan: Elevated liver enzymes with AST peaking at 274 and ALT peaking at 198. Hepatitis panel negative. Abdominal US showing hepatic steatosis. 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 Continue to monitor. (5) Depression: Code(s): F32.A - Depression, unspecified Status: Acute Assessment and Plan: Patient history of PTSD, ADD and Hypomanic bipolar II disorder listed in his PMH. Was recently started on Abilify by his Psychiatry and dose increased. Contributing to his symptoms? Follow (6) Alcoholism: Code(s): F10.20 - Alcohol dependence, uncomplicated Status: Acute Assessment and Plan: As above. He will be educated about the benefits of abstaining from alcohol when able (7) Agitation: Code(s): R45.1 - Restlessness and agitation Status: Acute Assessment and Plan: Related to above. Currently sedated. (8) DVT prophylaxis: Code(s): Z29.9 - Encounter for prophylactic measures, unspecified Status: Acute Assessment and Plan: Lovenox Subjective Date/time seen: 07/06/21 13:44 Interval history: 40yo male with bipolar disorder and alcoholism here for auditory hallucinations that progressed to confusion, tremors and diaphoresis requiring intubation and sedation with Precedex. Patient is intubated and sedated. Precedex has been weaned off and currently on Versed and propofol. TF started. Febrile recently and cultures ordered. Review of Systems Review of Systems: ROS unobtainable: Yes unobtainable due to endotracheal tube Exam Narrative: Tm 101.8 140/89 95 18 96% MV Gen - NARD; intubated and sedated HEENT - Pupils 2-3mm; ETT and OG secured Chest - CTA bilaterally anteriorly and in hte flanks. CV - RRR S1/S2; Tele showing no significant dysrhythmias. Abd - Soft, ND, +BS - Gaxiola secured draining clear yellow urine Ext - No edema, 2+ DP pulses bilat Neuro - intubated and sedated Skin - diaphoretic to the face and mildly flushed. Not warm to touch Objective Data Vital Signs Vital Signs: Vital Signs - 24 hr 07/05/21 15:24 07/05/21 15:25 07/05/21 15:30 Temperature Pulse Rate 94 93 91 Respiratory Rate 21 H 18 19 Blood Pressure 154/101 H Pulse Oximetry 97 96 07/05/21 15:46 07/05/21 16:00 07/05/21 16:01 Temperature Pulse Rate 91 88 85 Respiratory Rate 17 17 15 Blood Pressure 123/87 Pulse Oximetry 97 07/05/21 16:15 07/05/21 16:30 07/05/21 16:31 Temperature Pulse Rate 101 H Respiratory Rate 26
[2021-07-06] MEDS: THIAMINE HCL 200 MG/2 ML VIAL 100 MG IV PUSH (15:12)
[2021-07-06] MEDS: FOLIC ACID 1 MG/0.2 ML INJ IV PUSH (15:12)
[2021-07-06] MEDS: ENOXAPARIN 40 MG/0.4 ML SYRINGE SUB-Q (21:51)
[2021-07-07] VITALS (32 sets, daily range): BP systolic 112–153; BP diastolic 51–104; PULSE 63–107; RESP 16–24; TEMP 37.1–38.4; O2SAT 92–100
[2021-07-07] MEDS: MIDAZOLAM 100MG/NS 100ML(*CRX) 100 MG/100 ML BAG 6 MG IV CONT (00:56)
[2021-07-07] MEDS: PROPOFOL IV EMULSION 100 ML 27.18 MG IV CONT ×2 (03:38→07:44)
[2021-07-07] MEDS: SODIUM CHLORIDE 0.9% IV 1,000 ML 125 ML IV CONT ×3 (04:20→21:44)
[2021-07-07] MEDS: fentaNYL CITRATE INJ (*CRX) 100 MCG/2 ML VIAL 50 MCG IV PUSH ×2 (04:23→08:23)
[2021-07-07 04:50] LABS: Basophils Percent Auto 0.3 % (0.2-1.2); Eosinophils Absolute Auto 0.1 K/mm3 (0-0.3); Hematocrit 32.9 % (42.0-52.0); Hemoglobin 11.3 g/dL (14.0-18.0); Immature Granulocyte Absolute 0.07 K/mm3 (0.00-0.031); Immature Granulocyte Percent A 0.7 % (0-0.5); Lymphocytes Absolute Auto 1.58 K/mm3 (0.9-3.2); Lymphocytes Percent Auto 16.2 % (18.3-44.2); Mean Corpuscular HGB Conc 34.3 g/dl (32-36); Mean Corpuscular Hemoglobin 34.5 pg (26-34); Mean Corpuscular Volume 100.3 fl (80-100); Mean Platelet Volume 10.8 fl (7.4-10.4); Monocytes Absolute Auto 1.2 K/mm3 (0.1-0.6); Monocytes Percent Auto 12.3 % (2.6-8.5); Neutrophils Absolute Auto 6.8 K/mm3 (1.3-6.7); Neutrophils Percent Auto 69.5 % (45.5-73.1); Platelet Count Result 193 k/mm3 (150-375); Red Blood Count 3.28 M/mm3 (4.6-6.20); Red Cell Distribution Width 12.5 % (11.5-14.5); White Blood Count 9.8 K/mm3 (4.5-10.0)
[2021-07-07 04:56] LABS: Alanine Aminotransferase 121 U/L (4-50); Albumin Level 3.1 g/dL (3.5-5.1); Alkaline Phosphatase 59 U/L (38-126); Anion Gap 7 mmol/L (8-16); Aspartate Amino Transferase 110 U/L (17-59); Bilirubin,Total 0.4 mg/dL (0.2-1.3); Blood Urea Nitrogen 6 mg/dL (9-20); Calcium 7.1 mg/dL (8.4-10.2); Carbon Dioxide 21 mmol/L (22-30); Chloride 109 mmol/L (98-107); Estimated CRCL calculation 192 ml/min; Estimated Glomerular Filt Rate > 60; Glucose 96 mg/dL (65-110); Magnesium 2.2 mg/dL (1.6-2.3); Phosphorus 2.8 mg/dL (2.5-4.5); Potassium 3.4 mmol/L (3.4-5.0); Sodium 137 mmol/L (137-145)
[2021-07-07 05:14] LABS: Alveolar/Arterial O2 Gradient 82.5 mmHg; Base Excess ABG -1.3 mEq/l (+/-2.0); Carboxyhemoglobin 0.3 % THb (0-2.0); Device VENTILATOR; Fractional Inspired Oxygen 30 %; HCO3 ABG 23.3 mEq/l (22.0-26.0); Methemoglobin ABG 0.3 %THb (0-1.5); Oxygen Content ABG 18.6 %vol (16.0-22.0); Oxygen Saturation ABG 96.5 % (95.0-100.0); Oxyhemoglobin 95.7 % THb (90.0-100.0); PCO2 ABG 38.9 mmHg (35.0-45.0); PO2 ABG 85.7 mmHg (80.0-100.0); PO2 FiO2 Ratio Arterial Blood 2.86 %; Reduced Hemoglobin 3.7 %THb (0-5.0); Site Drawn RIGHT BRACHIAL; Total Hemoglobin 13.8 g/dL (12.0-18.0); pH ABG 7.396 (7.350-7.450)
[2021-07-07 05:15] LABS: Arterial Blood Gas PEEP 5 cmH2O; Arterial Blood Gas Tidal Volume 500 ml; Arterial Blood Gas Vent Mode CMV; Arterial Blood Gas Ventilator rate 18 /MIN
[2021-07-07 05:15] LABS: Lipase 210 U/L (23-300)
[2021-07-07 06:18] LABS: Glucose Point of Care 109 mg/dl (65-105)
[2021-07-07] MEDS: FOLIC ACID 1 MG/0.2 ML INJ IV PUSH (08:25)
[2021-07-07] MEDS: MINERAL OIL/WHITE PETROLATUM OINTMENT 1 APPLIC EACH EYE (08:26)
[2021-07-07] MEDS: THIAMINE HCL 200 MG/2 ML VIAL 100 MG IV PUSH (08:27)
[2021-07-07] MEDS: PANTOPRAZOLE SODIUM IV 40 MG VIAL IV PUSH (08:31)
[2021-07-07] MEDS: PROPOFOL IV EMULSION 100 ML 24.46 MG IV CONT (10:49)
[2021-07-07] MEDS: dexmedeTOMIDine 400 MCG/100 ML 400 MCG/100 ML BAG 6.8 MCG IV CONT ×2 (10:55→18:50)
--- NOTE | 2021-07-07 11:44 | PCFNICU ---
Addendum entered by Natalie Goins RD, LDN 07/07/21 12:11: Wrong patient documentation on Bowel Movements: No BM reported at this time. Original Note: ICU Rounding Note: Pt current nutrition is Vital AF 1.2 at 55 ml/hr over 22 hours. Last recorded weight is 111.9 kg, up from 91.9 kg on admit. Bowel Motility: No BM reported. Miralax, Reglan started. Plans for Suppository today. Labs Reviewed: Cr 0.6,BUN 6, Alb 3.1 Meds Noted:Precedex, Folic Acid, Thiamine, Protonix, NS, Propofol 40 dtpr=771 kcals, Reglan, Miralax. Skin: WNL Additional Notes: Patient remains on mechanical vent and tube feedings of Vital AF 1.2 at 55 ml/hr over 22 hours. Propofol Infusion at 40 mics providing an additional 574 kcals. Total nutrition: 2026 kcals/90 gms protein/981 ml water. Free water flush 30 ml q 4 hours. Plans to decrease sedation today with goal of intubation. Agree with diet orders. Following daily in ICU rounds. Will reassess every Sunday and Sunday.
[2021-07-07 12:07] LABS: Glucose Point of Care 84 mg/dl (65-105)
[2021-07-07] MEDS: ACETAMINOPHEN ELIXIR 325 MG/10.15 ML UDC 650 MG PO (12:21)
--- NOTE | 2021-07-07 13:38 | WPDINTPN ---
Progress Note: A&P Assessment and Plan (1) Acute respiratory failure: Code(s): J96.00 - Acute respiratory failure, unspecified whether with hypoxia or hypercapnia Status: Acute Assessment and Plan: Patient presented with hallucinations, delusions, flight of ideas, was started on Precedex infusion for worsening confusion, but had sonorous respirations and was intubated for airway protection -on CMV mode of ventilation, peep of 5, 35% FiO2 -chest x-ray and ABGs reviewed, will increase tidal volume patient is tall -will switch sedation from for said in fentanyl to Precedex infusion -placed on SBT and will evaluate for extubation (2) Alcohol abuse with withdrawal: Code(s): F10.139 - Alcohol abuse with withdrawal, unspecified Status: Acute Assessment and Plan: Patient possibly presented with alcohol withdrawal since he had tremors, delusions and flight of idea. -patient with alcohol abuse -continue thiamine and folic acid -will continue Precedex infusion even after patient is extubated (3) Agitation: Code(s): R45.1 - Restlessness and agitation Status: Acute Assessment and Plan: Currently intubated and sedated (4) Elevated liver enzymes: Code(s): R74.8 - Abnormal levels of other serum enzymes Status: Acute Assessment and Plan: Elevated liver enzymes likely related to alcohol liver disease -abdominal ultrasound showed hepatic steatosis -patient on IV fluids, LFTs trending down, will continue to monitor -liver enzymes trending (5) Depression: Code(s): F32.A - Depression, unspecified Status: Acute Assessment and Plan: Patient history of depression, PTSD, ADD Was recently started on Abilify per Psychiatry -will continue (6) DVT prophylaxis: Code(s): Z29.9 - Encounter for prophylactic measures, unspecified Status: Acute Assessment and Plan: Enoxaparin Additional Plan Stress ulcer prophylaxis: Protonix Code status: Full code Critical care time spent: 32 minutes This dictation may have been done utilizing a voice recognition system. Attempts have been made to correct errors. However, there may be uncorrected grammatical, spelling, and recognition errors present. Due to a high probability of clinically significant, life threatening deterioration, the patient required my highest level of preparedness to intervene emergently and I personally spent this critical care time directly and personally managing the patient. This critical care time included obtaining a history; examining the patient; pulse oximetry; ordering and review of studies; arranging urgent treatment with development of a management plan; evaluation of patient's response to treatment; frequent reassessment; and discussions with other providers. It was exclusive of separately billable procedures and treating other patients and teaching time. Please see Assessment and Plan section and the rest of the note for further information on patient assessment and treatment Subjective Date/time seen: 07/07/21 13:38 Interval history: 40yo male with bipolar disorder and alcoholism here for auditory hallucinations that progressed to confusion, tremors and diaphoresis requiring intubation and sedation with Precedex. 07/07/2021: Patient remains intubated on CMV mode of ventilation, sedated with propofol and Versed infusion. Patient does open his eyes, follows simple commands and nods to questions. Urine output has been adequate, patient is been febrile with a T-max of 100.2?, LFTs are trending down, lipase has normalized. No issues overnight Review of Systems Review of Systems: ROS unobtainable: Yes unobtainable due to endotracheal tube and unobtainable due to medical condition Exam Narrative: General: Patient is intubated and sedated HEENT: Pupils equal and reactive, sclera is clear, ETT in place Neck: Supple, no lymphadenopathy Respiratory: Clear to auscultation bi
[2021-07-07 13:47] LABS: Alveolar/Arterial O2 Gradient 86.3 mmHg; Base Excess ABG -1.2 mEq/l (+/-2.0); Device VENTILATOR; Fractional Inspired Oxygen 30 %; HCO3 ABG 22.3 mEq/l (22.0-26.0); Modified Allen's Test Pass; Oxygen Content ABG 19.1 %vol (16.0-22.0); Oxygen Saturation ABG 97.1 % (95.0-100.0); Oxyhemoglobin 95.9 % THb (90.0-100.0); PCO2 ABG 33.6 mmHg (35.0-45.0); PO2 ABG 88.1 mmHg (80.0-100.0); PO2 FiO2 Ratio Arterial Blood 2.94 %; Site Drawn LEFT RADIAL; Total Hemoglobin 14.1 g/dL (12.0-18.0); pH ABG 7.439 (7.350-7.450)
[2021-07-07 13:48] LABS: Arterial Blood Gas PEEP 5 cmH2O; Arterial Blood Gas Pressure Support 8 cmH2O; Arterial Blood Gas Vent Mode SPONTANEOUS
--- NOTE | 2021-07-07 14:58 | PM.IMPN ---
Progress Note: A&P Assessment and Plan (1) Acute respiratory failure: Code(s): J96.00 - Acute respiratory failure, unspecified whether with hypoxia or hypercapnia Status: Acute Assessment and Plan: Patient presented with hallucinations, delusions and flight of ideas. Concern for alcohol withdrawal and/or psychiatric condition. He was started on Precedex infusion for worsening confusion but developed sonorous respirations and was intubated for airway protection on 07/05/21. Patient was stabilized. He remains stable on mechanical ventilation. He was weaned to minimal settings. He was weaned down on sedation. He was able to be extubated on 07/07/2021. Continue to wean supplemental oxygen as tolerated. Appreciate Hand Lacer input. (2) Alcohol abuse with withdrawal: Code(s): F10.139 - Alcohol abuse with withdrawal, unspecified Status: Acute Assessment and Plan: Patient presented with hallucinations with concern for alcohol withdrawal since he had tremors, delusions and flight of idea. UDS is positive for amphetamines and cannabinoids. Overdose of Adderall? Patient remains stable on Precedex. Continue Precedex and wean as tolerated. Continue Thiamine and folic acid. Librium added. (3) Fever: Code(s): R50.9 - Fever, unspecified Status: Acute Assessment and Plan: Patient continues to have fevers. UA not consistent with UTI. CXR on admission showing left medial basal airspace disease. Urine culture negative. Blood cultures no growth today. Sputum culture pending. Chest x-ray showed scattered segmental bibasilar airspace disease. Pneumonia? Could be aspiration. Abx remain on hold but patient continues to have fevers. Could be atelectasis ill. Will have patient out of bed and walk in room. Repeat chest x-ray in the morning. (4) Elevated liver enzymes: Code(s): R74.8 - Abnormal levels of other serum enzymes Status: Acute Assessment and Plan: Elevated liver enzymes with AST peaking at 274 and ALT peaking at 198. Hepatitis panel negative. Abdominal US showing hepatic steatosis. 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 LFTs trending downward. Continue to monitor. (5) Depression: Code(s): F32.A - Depression, unspecified Status: Acute Assessment and Plan: Patient history of PTSD, ADD and hypomanic bipolar II disorder listed in his PMH. He was recently started on Abilify by his Psychiatry and dose increased. Contributing to his symptoms? Will hold Abilify for now. (6) Alcoholism: Code(s): F10.20 - Alcohol dependence, uncomplicated Status: Acute Assessment and Plan: As above. He was educated about the benefits of abstaining from alcohol (7) Agitation: Code(s): R45.1 - Restlessness and agitation Status: Acute Assessment and Plan: Related to above. Remaining calm. (8) DVT prophylaxis: Code(s): Z29.9 - Encounter for prophylactic measures, unspecified Status: Acute Assessment and Plan: Lovenox Subjective Date/time seen: 07/07/21 14:58 Interval history: 40yo male with bipolar disorder and alcoholism here for auditory hallucinations that progressed to confusion, tremors and diaphoresis requiring intubation and sedation. Patient was extubated today successfully. He denies any chest pain or abdominal pain. He is complaining of sore throat. He is thirsty. No history of withdrawal seizures. He states he drinks 10-14 beers per week and whiskey 7 drinks per week. Denies feeling short of breath. He remains on Precedex. Exam Narrative: Tm 101.1 142/97 90 18 97% 2L Gen - NARD lying semi recumbent in bed Chest -right base inspiratory crackles otherwise clear. Normal respiratory rate CV - RRR S1/S2; Tele showing no significant dysrhythmias. Abd - Soft, ND, +BS - Gaxiola secured draining clear yellow urine Ext - No pedal edema Neuro -normal mood and a
[2021-07-07 18:08] LABS: Glucose Point of Care 113 mg/dl (65-105)
[2021-07-07] MEDS: chlordiazePOXIDE (*CRX) 25 MG CAPSULE 50 MG PO (18:59)
[2021-07-07] MEDS: LORazepam INJ (*CRX) 2 MG/ML VIAL 1 MG IV PUSH (19:51)
[2021-07-07] MEDS: ENOXAPARIN 40 MG/0.4 ML SYRINGE SUB-Q (21:45)
[2021-07-08] VITALS (25 sets, daily range): BP systolic 107–169; BP diastolic 62–117; PULSE 64–96; RESP 16–26; TEMP 36.4–37.4; O2SAT 91–97
[2021-07-08] MEDS: chlordiazePOXIDE (*CRX) 25 MG CAPSULE 50 MG PO ×4 (00:04→17:08)
[2021-07-08] MEDS: LORazepam INJ (*CRX) 2 MG/ML VIAL 1 MG IV PUSH ×5 (03:16→21:02)
[2021-07-08] MEDS: dexmedeTOMIDine 400 MCG/100 ML 400 MCG/100 ML BAG 11.33 MCG IV CONT ×2 (03:22→10:29)
[2021-07-08] MEDS: SODIUM CHLORIDE 0.9% IV 1,000 ML 125 ML IV CONT (03:54)
[2021-07-08 05:05] LABS: Basophils Percent Auto 0.3 % (0.2-1.2); Eosinophils Absolute Auto 0.1 K/mm3 (0-0.3); Eosinophils Percent Auto 1.2 % (0-4.4); Hematocrit 38.9 % (42.0-52.0); Hemoglobin 13.4 g/dL (14.0-18.0); Immature Granulocyte Absolute 0.07 K/mm3 (0.00-0.031); Immature Granulocyte Percent A 0.7 % (0-0.5); Lymphocytes Absolute Auto 2.14 K/mm3 (0.9-3.2); Lymphocytes Percent Auto 19.9 % (18.3-44.2); Mean Corpuscular HGB Conc 34.4 g/dl (32-36); Mean Corpuscular Volume 95.8 fl (80-100); Mean Platelet Volume 10.6 fl (7.4-10.4); Monocytes Absolute Auto 1.2 K/mm3 (0.1-0.6); Monocytes Percent Auto 11.4 % (2.6-8.5); Neutrophils Absolute Auto 7.2 K/mm3 (1.3-6.7); Neutrophils Percent Auto 66.5 % (45.5-73.1); Platelet Count Result 228 k/mm3 (150-375); Red Blood Count 4.06 M/mm3 (4.6-6.20); Red Cell Distribution Width 12.2 % (11.5-14.5); White Blood Count 10.7 K/mm3 (4.5-10.0)
[2021-07-08 05:21] LABS: Alanine Aminotransferase 111 U/L (4-50); Albumin Level 3.7 g/dL (3.5-5.1); Alkaline Phosphatase 75 U/L (38-126); Anion Gap 6 mmol/L (8-16); Aspartate Amino Transferase 78 U/L (17-59); Bilirubin,Total 1.3 mg/dL (0.2-1.3); Blood Urea Nitrogen 4 mg/dL (9-20); Calcium 8.3 mg/dL (8.4-10.2); Carbon Dioxide 27 mmol/L (22-30); Chloride 104 mmol/L (98-107); Estimated CRCL calculation 192 ml/min; Estimated Glomerular Filt Rate > 60; Glucose 108 mg/dL (65-110); Lipase 81 U/L (23-300); Magnesium 2.1 mg/dL (1.6-2.3); Phosphorus 2.5 mg/dL (2.5-4.5); Potassium 3.9 mmol/L (3.4-5.0); Sodium 137 mmol/L (137-145)
[2021-07-08] MEDS: THIAMINE HCL 200 MG/2 ML VIAL 100 MG IV PUSH (08:46)
[2021-07-08] MEDS: PANTOPRAZOLE SODIUM IV 40 MG VIAL IV PUSH (08:46)
[2021-07-08] MEDS: FOLIC ACID 1 MG/0.2 ML INJ IV PUSH (08:46)
--- NOTE | 2021-07-08 11:24 | PCNFU ---
Nutrition Follow-Up Complete: Inadequate Oral Intake as related to mechanical ventilation as evidenced by NPO. goal: Meet estimated nutritional needs Patient is progressing towards goal. We will continue current goal. Pt current nutrition is Regular. Last recorded weight is 108.1 kg, up from 91.9 kg on admit. Bowel Motility:+BM reported 07/07 Labs Reviewed:Cr 0.6,BUN 4, Hct 38.9, Hgb 13.4 Meds Noted:Folic Acid, Thiamine, Librium, Ativan, Protonix Skin: WNL Additional Notes: Patient extubated on 07/07. Diet order has advanced to a regular diet. Patient tolerated clear liquid tray this morning. Agree with diet orders. No further nutritional interventions needed at this time.
[2021-07-08] MEDS: THERAPEUTIC MULTIVITAMINS/MINERALS TAB (*BKC) 1 TABLET PO (11:48)
[2021-07-08] MEDS: ARIPiprazole 5 MG TABLET 15 MG PO (11:48)
[2021-07-08] MEDS: PROPRANOLOL HCL 10 MG TABLET PO ×2 (11:52→17:08)
--- NOTE | 2021-07-08 12:56 | PM.IMPN ---
Progress Note: A&P Assessment and Plan (1) Acute respiratory failure: Code(s): J96.00 - Acute respiratory failure, unspecified whether with hypoxia or hypercapnia Status: Acute Assessment and Plan: Patient presented with hallucinations, delusions and flight of ideas. Concern for alcohol withdrawal and/or psychiatric condition. He was started on Precedex infusion for worsening confusion but developed sonorous respirations and was intubated for airway protection on 07/05/21. Patient was stabilized and remained stable on mechanical ventilation. He was weaned to minimal settings. He was weaned down on sedation. He was able to be extubated on 07/07/2021 successfully. Remaining stable and now on room air. Appreciate [employer] input. (2) Alcohol abuse with withdrawal: Code(s): F10.139 - Alcohol abuse with withdrawal, unspecified Status: Acute Assessment and Plan: Patient presented with hallucinations with concern for alcohol withdrawal since he had tremors, delusions and flight of idea. UDS is positive for amphetamines and cannabinoids. Patient remains stable on Precedex but still requiring Ativan at times. CIWA runs 4-13. Continue Precedex and wean as tolerated. Continue Thiamine, folate and Librium. (3) Fever: Code(s): R50.9 - Fever, unspecified Status: Acute Assessment and Plan: Patient continues to have fevers. UA not consistent with UTI. CXR on admission showing left medial basal airspace disease. Urine culture negative. Blood cultures no growth today. Sputum culture pending. Chest x-ray showed scattered segmental bibasilar airspace disease. Could be aspiration PNA vs atelectasis. CXR this morning again showing bibasilar airspace disease. Will continue to hold off on abx since the fevers have resolved. Will follow for now. (4) Elevated liver enzymes: Code(s): R74.8 - Abnormal levels of other serum enzymes Status: Acute Assessment and Plan: Elevated liver enzymes with AST peaking at 274 and ALT peaking at 198. Hepatitis panel negative. Abdominal US showing hepatic steatosis. 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 LFTs trending downward. Continue to monitor. (5) Depression: Code(s): F32.A - Depression, unspecified Status: Acute Assessment and Plan: Patient history of PTSD, ADD and hypomanic bipolar II disorder listed in his PMH. He was recently increased on his Abilify to 15mg. Patient recovering well. Will resume Abilify now. (6) Alcoholism: Code(s): F10.20 - Alcohol dependence, uncomplicated Status: Acute Assessment and Plan: As above. He was educated about the benefits of abstaining from alcohol. (7) Agitation: Code(s): R45.1 - Restlessness and agitation Status: Acute Assessment and Plan: Related to above. Remaining calm. (8) DVT prophylaxis: Code(s): Z29.9 - Encounter for prophylactic measures, unspecified Status: Acute Assessment and Plan: Lovenox Subjective Date/time seen: 07/08/21 12:56 Interval history: 40yo male with bipolar disorder and alcoholism here for auditory hallucinations that progressed to confusion, tremors and diaphoresis requiring intubation and sedation. Patient was extubated yesterday. He remains on Precedex. No CP or SOB. Still having hallucinations. No abd pain. Coughing at times with drinking. RN states CIWA still 13-15. Eating and toelrting it without n/v. Patient states he has been diagnosed with bipolar disorder, depression and anxiety. He mentions schizophrenia but then back tracks. He was on Abilify 10 mg daily which the doctor increased to 20 mg but this resulted in night terrors. Abilify dose was decreased to 15 mg and he has tolerated this well. Exam Narrative: Tm 101.1 99.3 136/89 72 26 94% ra Gen - NARD sitting up in bed Chest - CTA bilaterally, nml RR CV - RRR S1/S2; Tele showing no significant d
--- NOTE | 2021-07-08 13:07 | WPDINTPN ---
Progress Note: A&P Assessment and Plan (1) Acute respiratory failure: Code(s): J96.00 - Acute respiratory failure, unspecified whether with hypoxia or hypercapnia Status: Acute Assessment and Plan: Patient presented with hallucinations, delusions, flight of ideas, was started on Precedex infusion for worsening confusion, but had sonorous respirations and was intubated for airway protection -successfully extubated on 07/07/2021 -off all sedation -continue to encourage incentive spirometry -up in chair -will resume regular diet (2) Alcohol abuse with withdrawal: Code(s): F10.139 - Alcohol abuse with withdrawal, unspecified Status: Acute Assessment and Plan: Patient possibly presented with alcohol withdrawal since he had tremors, delusions and flight of idea. -patient with alcohol abuse -continue oral multivitamin, thiamine and folic acid -wean Precedex infusion to off -continue to monitor for withdrawal symptoms -continue CIWA protocol -p.r.n. Ativan (3) Agitation: Code(s): R45.1 - Restlessness and agitation Status: Acute Assessment and Plan: Resolved (4) Elevated liver enzymes: Code(s): R74.8 - Abnormal levels of other serum enzymes Status: Acute Assessment and Plan: Elevated liver enzymes likely related to alcohol liver disease -abdominal ultrasound showed hepatic steatosis - LFTs trending down, will continue to monitor -will stop IV fluids (5) Depression: Code(s): F32.A - Depression, unspecified Status: Acute Assessment and Plan: Patient history of depression, PTSD, ADD Was recently started on Abilify per Psychiatry -will continue Abilify (6) DVT prophylaxis: Code(s): Z29.9 - Encounter for prophylactic measures, unspecified Status: Acute Assessment and Plan: Enoxaparin Additional Plan Stress ulcer prophylaxis: Protonix Discussed with patient and his and updated them with his condition and plan of care. Code status: Full code Critical care time spent: 32 minutes This dictation may have been done utilizing a voice recognition system. Attempts have been made to correct errors. However, there may be uncorrected grammatical, spelling, and recognition errors present. Due to a high probability of clinically significant, life threatening deterioration, the patient required my highest level of preparedness to intervene emergently and I personally spent this critical care time directly and personally managing the patient. This critical care time included obtaining a history; examining the patient; pulse oximetry; ordering and review of studies; arranging urgent treatment with development of a management plan; evaluation of patient's response to treatment; frequent reassessment; and discussions with other providers. It was exclusive of separately billable procedures and treating other patients and teaching time. Please see Assessment and Plan section and the rest of the note for further information on patient assessment and treatment Subjective Date/time seen: 07/08/21 13:07 Interval history: 40yo male with bipolar disorder and alcoholism here for auditory hallucinations that progressed to confusion, tremors and diaphoresis requiring intubation and sedation with Precedex. 07/07/2021: Extubated 07/08/2021: Patient successfully extubated yesterday. Currently on room air with good O2 sats. Patient is awake, alert, intermittently confused. Remains on Precedex infusion. Urine output has been adequate, hemodynamically stable, denies any chest pain, shortness a breath, abdominal pain, nausea vomiting. Patient is afebrile, LFTs on total bilirubin trending down. He has been coughing with some liquids, No issues overnight Review of Systems Review of Systems: All systems reviewed & are unremarkable except as noted in HPI and below Exam Narrative: General: Patient is resting comfortably in bed in no distre
[2021-07-08] MEDS: ENOXAPARIN 40 MG/0.4 ML SYRINGE SUB-Q (21:02)
[2021-07-09] VITALS (27 sets, daily range): BP systolic 109–180; BP diastolic 69–111; PULSE 51–79; RESP 14–26; TEMP 35.9–37.1; O2SAT 93–98
[2021-07-09] MEDS: chlordiazePOXIDE (*CRX) 25 MG CAPSULE 50 MG PO ×4 (00:10→17:45)
[2021-07-09] MEDS: LORazepam INJ (*CRX) 2 MG/ML VIAL 1 MG IV PUSH (03:00)
[2021-07-09 04:39] LABS: Basophils Percent Auto 0.4 % (0.2-1.2); Eosinophils Absolute Auto 0.1 K/mm3 (0-0.3); Eosinophils Percent Auto 1.1 % (0-4.4); Hematocrit 39.3 % (42.0-52.0); Hemoglobin 13.4 g/dL (14.0-18.0); Immature Granulocyte Absolute 0.06 K/mm3 (0.00-0.031); Immature Granulocyte Percent A 0.6 % (0-0.5); Lymphocytes Absolute Auto 1.82 K/mm3 (0.9-3.2); Mean Corpuscular HGB Conc 34.1 g/dl (32-36); Mean Corpuscular Hemoglobin 32.8 pg (26-34); Mean Corpuscular Volume 96.3 fl (80-100); Mean Platelet Volume 10.6 fl (7.4-10.4); Monocytes Absolute Auto 1.1 K/mm3 (0.1-0.6); Monocytes Percent Auto 11.8 % (2.6-8.5); Neutrophils Absolute Auto 6.4 K/mm3 (1.3-6.7); Neutrophils Percent Auto 67.1 % (45.5-73.1); Platelet Count Result 271 k/mm3 (150-375); Red Blood Count 4.08 M/mm3 (4.6-6.20); Red Cell Distribution Width 12.4 % (11.5-14.5); White Blood Count 9.6 K/mm3 (4.5-10.0)
[2021-07-09 04:59] LABS: Alanine Aminotransferase 83 U/L (4-50); Albumin Level 3.9 g/dL (3.5-5.1); Alkaline Phosphatase 86 U/L (38-126); Anion Gap 7 mmol/L (8-16); Aspartate Amino Transferase 52 U/L (17-59); Bilirubin,Total 0.5 mg/dL (0.2-1.3); Blood Urea Nitrogen 5 mg/dL (9-20); CRP 4.3 mg/dL (<1.0); Calcium 8.3 mg/dL (8.4-10.2); Carbon Dioxide 24 mmol/L (22-30); Chloride 109 mmol/L (98-107); Estimated CRCL calculation 170 ml/min; Estimated Glomerular Filt Rate > 60; Glucose 122 mg/dL (65-110); Potassium 3.5 mmol/L (3.4-5.0); Sodium 140 mmol/L (137-145)
[2021-07-09] MEDS: HALOPERIDOL LACTATE 5 MG/ML VIAL IM (05:05)
[2021-07-09] MEDS: HALOPERIDOL LACTATE 5 MG/ML VIAL 10 MG IM (05:06)
[2021-07-09] MEDS: dexmedeTOMIDine 400 MCG/100 ML 400 MCG/100 ML BAG 33.98 MCG IV CONT (05:21)
[2021-07-09] MEDS: hydrALAZINE HCL 20 MG/ML VIAL 10 MG IV PUSH (09:10)
[2021-07-09] MEDS: PANTOPRAZOLE SODIUM IV 40 MG VIAL IV PUSH (09:11)
[2021-07-09] MEDS: dexmedeTOMIDine 400 MCG/100 ML 400 MCG/100 ML BAG 22.65 MCG IV CONT (09:40)
--- NOTE | 2021-07-09 10:54 | PCOTNOTE ---
Per RN, patient on sedative strip, unable to participate at this time due to some combative behavior overnight. Will continue OT per plan of care tomorrow.
--- NOTE | 2021-07-09 11:46 | WPDINTPN ---
Progress Note: A&P Assessment and Plan (1) Agitation: Code(s): R45.1 - Restlessness and agitation Status: Acute Assessment and Plan: Patient would agitated early this morning on 07/09/2021, trying to harm nurses, patient was given Haldol 5 mg IV x1 with no response, a repeat Haldol 10 mg IV x1 was then given and patient calmed down. -continue Precedex infusion, wean to keep patient awake and calm -this could be related to alcohol withdrawal, amphetamine or marijuana withdrawal. -continue close monitoring -bedside sitter in place (2) Acute respiratory failure: Code(s): J96.00 - Acute respiratory failure, unspecified whether with hypoxia or hypercapnia Status: Acute Assessment and Plan: Patient presented with hallucinations, delusions, flight of ideas, was started on Precedex infusion for worsening confusion, but had sonorous respirations and was intubated for airway protection -successfully extubated on 07/07/2021 -currently on Precedex infusion - (3) Alcohol abuse with withdrawal: Code(s): F10.139 - Alcohol abuse with withdrawal, unspecified Status: Acute Assessment and Plan: Patient possibly presented with alcohol withdrawal since he had tremors, delusions and flight of idea. -patient with alcohol abuse -continue multivitamin, thiamine and folic acid -wean Precedex infusion to off -continue to monitor for withdrawal symptoms -continue CIWA protocol -p.r.n. Ativan (4) Elevated liver enzymes: Code(s): R74.8 - Abnormal levels of other serum enzymes Status: Acute Assessment and Plan: Elevated liver enzymes likely related to alcohol liver disease -abdominal ultrasound showed hepatic steatosis - LFTs trending down, will continue to monitor (5) Depression: Code(s): F32.A - Depression, unspecified Status: Acute Assessment and Plan: Patient history of depression, PTSD, ADD Was recently started on Abilify per Psychiatry -will continue Abilify (6) DVT prophylaxis: Code(s): Z29.9 - Encounter for prophylactic measures, unspecified Status: Acute Assessment and Plan: Enoxaparin Additional Plan Stress ulcer prophylaxis: Protonix Discussed with patient's brother and updated him with his condition and plan of care. Code status: Full code Critical care time spent: 32 minutes This dictation may have been done utilizing a voice recognition system. Attempts have been made to correct errors. However, there may be uncorrected grammatical, spelling, and recognition errors present. Due to a high probability of clinically significant, life threatening deterioration, the patient required my highest level of preparedness to intervene emergently and I personally spent this critical care time directly and personally managing the patient. This critical care time included obtaining a history; examining the patient; pulse oximetry; ordering and review of studies; arranging urgent treatment with development of a management plan; evaluation of patient's response to treatment; frequent reassessment; and discussions with other providers. It was exclusive of separately billable procedures and treating other patients and teaching time. Please see Assessment and Plan section and the rest of the note for further information on patient assessment and treatment Subjective Date/time seen: 07/09/21 11:46 Interval history: 40yo male with bipolar disorder and alcoholism here for auditory hallucinations that progressed to confusion, tremors and diaphoresis requiring intubation and sedation with Precedex. 07/07/2021: Extubated 07/09/2021: Early this morning patient became agitated, combative, trying to harm the nurses, luis phillips was called. Patient was given Haldol 5 mg IV x1 with no improvement, a repeat Haldol 10 mg IV x1 was given which calmed the patient down and sedated him. Patient is also on Precedex infusion. Gaixola catheter was placed and lee ann
--- NOTE | 2021-07-09 12:12 | PM.IMPN ---
Progress Note: A&P Assessment and Plan (1) Agitation: Code(s): R45.1 - Restlessness and agitation Status: Acute Assessment and Plan: Patient would agitated early this morning on 07/09/2021, trying to harm nurses, patient was given Haldol 5 mg IV x1 with no response, a repeat Haldol 10 mg IV x1 was then given and patient calmed down. -continue Precedex infusion can wean down (2) Acute respiratory failure: Code(s): J96.00 - Acute respiratory failure, unspecified whether with hypoxia or hypercapnia Status: Acute Assessment and Plan: Patient presented with hallucinations, delusions and flight of ideas. Concern for alcohol withdrawal and/or psychiatric condition. He was started on Precedex infusion for worsening confusion but developed sonorous respirations and was intubated for airway protection on 07/05/21. Patient was stabilized and remained stable on mechanical ventilation. He was weaned to minimal settings. He was weaned down on sedation. He was able to be extubated on 07/07/2021 successfully. (3) Alcohol abuse with withdrawal: Code(s): F10.139 - Alcohol abuse with withdrawal, unspecified Status: Acute Assessment and Plan: Patient presented with hallucinations with concern for alcohol withdrawal since he had tremors, delusions and flight of idea. UDS is positive for amphetamines and cannabinoids. Continue Thiamine, folate and Librium. (4) Elevated liver enzymes: Code(s): R74.8 - Abnormal levels of other serum enzymes Status: Acute Assessment and Plan: Elevated liver enzymes likely related to alcohol liver disease Continue to watch LFTs (5) Depression: Code(s): F32.A - Depression, unspecified Status: Acute Assessment and Plan: Patient history of depression, PTSD, ADD continue Abilify (6) DVT prophylaxis: Code(s): Z29.9 - Encounter for prophylactic measures, unspecified Status: Acute Assessment and Plan: Enoxaparin Subjective Date/time seen: 07/09/21 12:12 Interval history: 40yo male with bipolar disorder and alcoholism here for auditory hallucinations that progressed to confusion, tremors and diaphoresis requiring intubation and sedation. Patient was extubated yesterday. He remains on Precedex. Pt is currently sleeping did receive haldol this morning Review of Systems Review of Systems: All systems reviewed & are unremarkable except as noted in HPI and below Exam Narrative: General: Patient is resting comfortably in bed in a good sleep Respiratory: Clear to auscultation bilaterally, good air entry, no wheezing Cardiac: Regular rate and rhythm, S1-S2 normal Abdomen: Soft, nontender, nondistended, normo-active bowel sounds Extremities: No edema, pedal pulses are palpable Neuro: Deep sleep but moves all extremities Objective Data Vital Signs Vital Signs: Vital Signs - 24 hr 07/08/21 12:30 07/08/21 14:00 07/08/21 14:30 Temperature Pulse Rate 72 85 85 Pulse Rate [Bilateral Pedal (Dorsalis Pedis) Palpation] Respiratory Rate 26 H Blood Pressure 118/66 Pulse Oximetry 91 07/08/21 15:33 07/08/21 16:00 07/08/21 17:08 Temperature 37.3 C Pulse Rate 71 78 Pulse Rate [Bilateral Pedal (Dorsalis Pedis) Palpation] 88 Respiratory Rate 26 H Blood Pressure 134/83 Pulse Oximetry 91 07/08/21 18:00 07/08/21 20:00 07/08/21 22:00 Temperature 36.9 C 36.9 C Pulse Rate 96 75 75 Pulse Rate [Bilateral Pedal (Dorsalis Pedis) Palpation] 75 Respiratory Rate 25 H 16 16 Blood Pressure 134/82 140/91 H 140/91 H Pulse Oximetry 96 94 94 07/08/21 23:00 07/09/21 00:00 07/09/21 02:00 Temperature Pulse Rate 79 71 Pulse Rate [Bilateral Pedal (Dorsalis Pedis) Palpation] 76 Respiratory Rate 16 16 Blood Pressure 136/111 H 142/90 H Pulse Oximetry 97 97 94 07/09/21 04:00 07/09/21 04:30 07/09/21 04:50 Temperature 36.7 C Pulse Rate 71 69 Pulse Rate [Bilateral Peda
[2021-07-09] MEDS: PROPRANOLOL HCL 10 MG TABLET PO ×2 (12:32→17:45)
[2021-07-09] MEDS: THIAMINE HCL 100 MG TABLET PO (12:32)
[2021-07-09] MEDS: FOLIC ACID 1 MG TABLET PO (12:33)
[2021-07-09] MEDS: ARIPiprazole 5 MG TABLET 15 MG PO (12:33)
[2021-07-09] MEDS: MULTIVITAMINS THERAPEUTIC TAB (*BKC) 1 TABLET PO (12:33)
[2021-07-09] MEDS: ASCORBIC ACID 500 MG TABLET PO (12:33)
[2021-07-09] MEDS: dexmedeTOMIDine 400 MCG/100 ML 400 MCG/100 ML BAG 15.86 MCG IV CONT (14:38)
[2021-07-09] MEDS: dexmedeTOMIDine 400 MCG/100 ML 400 MCG/100 ML BAG 13.59 MCG IV CONT (19:55)
[2021-07-09] MEDS: ENOXAPARIN 40 MG/0.4 ML SYRINGE SUB-Q (21:59)
[2021-07-10] VITALS (21 sets, daily range): BP systolic 90–136; BP diastolic 69–91; PULSE 53–93; RESP 15–25; TEMP 36.6–37.2; O2SAT 96–99
[2021-07-10] MEDS: dexmedeTOMIDine 400 MCG/100 ML 400 MCG/100 ML BAG 13.59 MCG IV CONT (02:22)
[2021-07-10] MEDS: chlordiazePOXIDE (*CRX) 25 MG CAPSULE 50 MG PO ×3 (05:46→17:13)
[2021-07-10 08:03] LABS: Basophils Absolute Auto 0.1 K/mm3 (0.0-0.1); Basophils Percent Auto 0.5 % (0.2-1.2); Eosinophils Absolute Auto 0.2 K/mm3 (0-0.3); Eosinophils Percent Auto 1.8 % (0-4.4); Hematocrit 42.9 % (42.0-52.0); Hemoglobin 14.5 g/dL (14.0-18.0); Immature Granulocyte Absolute 0.08 K/mm3 (0.00-0.031); Immature Granulocyte Percent A 0.9 % (0-0.5); Lymphocytes Absolute Auto 1.59 K/mm3 (0.9-3.2); Lymphocytes Percent Auto 17.1 % (18.3-44.2); Mean Corpuscular HGB Conc 33.8 g/dl (32-36); Mean Corpuscular Hemoglobin 32.4 pg (26-34); Mean Corpuscular Volume 95.8 fl (80-100); Mean Platelet Volume 10.2 fl (7.4-10.4); Monocytes Absolute Auto 0.8 K/mm3 (0.1-0.6); Monocytes Percent Auto 8.9 % (2.6-8.5); Neutrophils Absolute Auto 6.6 K/mm3 (1.3-6.7); Neutrophils Percent Auto 70.8 % (45.5-73.1); Platelet Count Result 366 k/mm3 (150-375); Red Blood Count 4.48 M/mm3 (4.6-6.20); Red Cell Distribution Width 12.3 % (11.5-14.5); White Blood Count 9.3 K/mm3 (4.5-10.0)
[2021-07-10 08:14] LABS: Alanine Aminotransferase 112 U/L (4-50); Albumin Level 4.3 g/dL (3.5-5.1); Alkaline Phosphatase 85 U/L (38-126); Anion Gap 10 mmol/L (8-16); Aspartate Amino Transferase 127 U/L (17-59); Bilirubin,Total 0.4 mg/dL (0.2-1.3); Blood Urea Nitrogen 11 mg/dL (9-20); Calcium 8.9 mg/dL (8.4-10.2); Carbon Dioxide 26 mmol/L (22-30); Chloride 105 mmol/L (98-107); Estimated CRCL calculation 130 ml/min; Estimated Glomerular Filt Rate > 60; Glucose 122 mg/dL (65-110); Magnesium 2.3 mg/dL (1.6-2.3); Phosphorus 3.1 mg/dL (2.5-4.5); Potassium 3.5 mmol/L (3.4-5.0); Sodium 141 mmol/L (137-145)
[2021-07-10] MEDS: THIAMINE HCL 100 MG TABLET PO (08:44)
[2021-07-10] MEDS: ARIPiprazole 5 MG TABLET 15 MG PO (08:45)
[2021-07-10] MEDS: PROPRANOLOL HCL 10 MG TABLET PO ×2 (08:45→17:13)
[2021-07-10] MEDS: ASCORBIC ACID 500 MG TABLET PO (08:45)
[2021-07-10] MEDS: FOLIC ACID 1 MG TABLET PO (08:45)
[2021-07-10] MEDS: PANTOPRAZOLE SODIUM IV 40 MG VIAL IV PUSH (08:45)
[2021-07-10] MEDS: MULTIVITAMINS THERAPEUTIC TAB (*BKC) 1 TABLET PO (08:45)
--- NOTE | 2021-07-10 09:07 | WPDINTPN ---
Progress Note: A&P Assessment and Plan (1) Agitation: Code(s): R45.1 - Restlessness and agitation Status: Acute Assessment and Plan: Resolved Patient would agitated early this morning on 07/09/2021, trying to harm nurses, patient was given Haldol 5 mg IV x1 with no response, a repeat Haldol 10 mg IV x1 was then given and patient calmed down. -continue to wean Precedex to off -this could be related to alcohol withdrawal, amphetamine or marijuana withdrawal. -continue close monitoring (2) Acute respiratory failure: Code(s): J96.00 - Acute respiratory failure, unspecified whether with hypoxia or hypercapnia Status: Acute Assessment and Plan: Patient presented with hallucinations, delusions, flight of ideas, was started on Precedex infusion for worsening confusion, but had sonorous respirations and was intubated for airway protection -successfully extubated on 07/07/2021 -increase activity -DC Gaxiola catheter (3) Alcohol abuse with withdrawal: Code(s): F10.139 - Alcohol abuse with withdrawal, unspecified Status: Acute Assessment and Plan: Patient possibly presented with alcohol withdrawal since he had tremors, delusions and flight of idea. -patient with alcohol abuse -continue multivitamin, thiamine and folic acid -wean Precedex infusion to off -continue to monitor for withdrawal symptoms -continue CIWA protocol -p.r.n. Ativan (4) Elevated liver enzymes: Code(s): R74.8 - Abnormal levels of other serum enzymes Status: Acute Assessment and Plan: Elevated liver enzymes likely related to alcohol liver disease -abdominal ultrasound showed hepatic steatosis - LFTs trending down, will continue to monitor (5) Depression: Code(s): F32.A - Depression, unspecified Status: Acute Assessment and Plan: Patient history of depression, PTSD, ADD Was recently started on Abilify per Psychiatry -will continue Abilify (6) DVT prophylaxis: Code(s): Z29.9 - Encounter for prophylactic measures, unspecified Status: Acute Assessment and Plan: Enoxaparin Additional Plan Stress ulcer prophylaxis: Protonix Discussed with patient updated with his condition and plan of care. He is aware that we will be weaning has Precedex to off, also will discontinue his Gaxiola catheter Code status: Full code Critical care time spent: 32 minutes This dictation may have been done utilizing a voice recognition system. Attempts have been made to correct errors. However, there may be uncorrected grammatical, spelling, and recognition errors present. Due to a high probability of clinically significant, life threatening deterioration, the patient required my highest level of preparedness to intervene emergently and I personally spent this critical care time directly and personally managing the patient. This critical care time included obtaining a history; examining the patient; pulse oximetry; ordering and review of studies; arranging urgent treatment with development of a management plan; evaluation of patient's response to treatment; frequent reassessment; and discussions with other providers. It was exclusive of separately billable procedures and treating other patients and teaching time. Please see Assessment and Plan section and the rest of the note for further information on patient assessment and treatment Subjective Date/time seen: 07/10/21 09:07 Interval history: 40yo male with bipolar disorder and alcoholism here for auditory hallucinations that progressed to confusion, tremors and diaphoresis requiring intubation and sedation with Precedex. 07/07/2021: Extubated 07/10/2021: Patient sitting up in chair, more awake, able to answer questions, feels much better. He is on Precedex infusion at 0.4 mcg/kg/hour. Patient states the Gaxiola catheter is hurting. Hemodynamically stable and urine output has been adequate, afebrile. Denies any shortness of breat
--- NOTE | 2021-07-10 11:50 | PM.IMPN ---
Progress Note: A&P Assessment and Plan (1) Agitation: Code(s): R45.1 - Restlessness and agitation Status: Acute Assessment and Plan: Resolved (2) Acute respiratory failure: Code(s): J96.00 - Acute respiratory failure, unspecified whether with hypoxia or hypercapnia Status: Acute Assessment and Plan: Resolved. Ambulate today. (3) Alcohol abuse with withdrawal: Code(s): F10.139 - Alcohol abuse with withdrawal, unspecified Status: Acute Assessment and Plan: Patient possibly presented with alcohol withdrawal since he had tremors, delusions and flight of idea. -patient with alcohol abuse -monitor. Cessation discussed. (4) Elevated liver enzymes: Code(s): R74.8 - Abnormal levels of other serum enzymes Status: Acute Assessment and Plan: Elevated liver enzymes likely related to alcohol liver disease -abdominal ultrasound showed hepatic steatosis -monitor. (5) Depression: Code(s): F32.A - Depression, unspecified Status: Acute Assessment and Plan: Patient history of depression, PTSD, ADD Was recently started on Abilify per Psychiatry -will continue Abilify (6) DVT prophylaxis: Code(s): Z29.9 - Encounter for prophylactic measures, unspecified Status: Acute Assessment and Plan: Enoxaparin Subjective Date/time seen: 07/10/21 11:50 Patient has no complaints today. Appears to be in good mood. Denies any tremors. Exam Narrative: General: Patient up in chair, in no distress HEENT: Pupils equal and reactive, sclera is clear, Neck: Supple, no lymphadenopathy Respiratory: Clear to auscultation bilaterally, good air entry, no wheezing Cardiac: Regular rate and rhythm, S1-S2 normal Abdomen: Soft, nontender, nondistended, normo-active bowel sounds Extremities: No edema, pedal pulses are palpable Neuro: Patient is sitting up in the chair alert, follows simple commands and answers to questions appropriately Skin: Dry and intact Psych: Normal mentation, Objective Data Vital Signs Vital Signs: Vital Signs - 24 hr 07/09/21 12:00 07/09/21 12:32 07/09/21 12:57 Temperature 96.7 F L Pulse Rate 59 L 51 L 53 L Pulse Rate [Bilateral Pedal (Dorsalis Pedis) Palpation] 52 L Respiratory Rate 17 15 Blood Pressure 122/81 Pulse Oximetry 97 07/09/21 14:00 07/09/21 14:38 07/09/21 16:00 Temperature 97.4 F L Pulse Rate 67 54 L 56 L Pulse Rate [Bilateral Pedal (Dorsalis Pedis) Palpation] 53 L Respiratory Rate 17 15 15 Blood Pressure 109/71 125/85 Pulse Oximetry 96 98 07/09/21 16:08 07/09/21 17:45 07/09/21 18:00 Temperature Pulse Rate 53 L 64 70 Pulse Rate [Bilateral Pedal (Dorsalis Pedis) Palpation] Respiratory Rate 14 16 Blood Pressure 109/69 Pulse Oximetry 07/09/21 19:55 07/09/21 20:00 07/09/21 22:00 Temperature 97 F L Pulse Rate 60 60 55 L Pulse Rate [Bilateral Pedal (Dorsalis Pedis) Palpation] 59 L Respiratory Rate 20 20 20 Blood Pressure 121/81 135/92 H Pulse Oximetry 97 97 07/10/21 00:00 07/10/21 00:45 07/10/21 02:00 Temperature Pulse Rate 61 55 L 57 L Pulse Rate [Bilateral Pedal (Dorsalis Pedis) Palpation] 55 L Respiratory Rate 18 17 19 Blood Pressure 134/91 H 136/85 Pulse Oximetry 96 97 07/10/21 02:22 07/10/21 04:00 07/10/21 05:00 Temperature 98.7 F Pulse Rate 54 L 58 L 59 L Pulse Rate [Bilateral Pedal (Dorsalis Pedis) Palpation] 58 L Respiratory Rate 15 19 17 Blood Pressure 112/74 Pulse Oximetry 97 07/10/21 05:53 07/10/21 06:14 07/10/21 07:32 Temperature Pulse Rate 60 56 L 73 Pulse Rate [Bilateral Pedal (Dorsalis Pedis) Palpation] Respiratory Rate 16 18 21 H Blood Pressure 124/80 Pulse Oximetry 98 07/10/21 07:37 07/10/21 08:00 07/10/21 08:39 Temperature 98.2 F Pulse Rate 74 85 Pulse Rate [Bilateral Pedal (Dorsalis Pedis) Palpation] 75 Respiratory Rate 25 H Blood Pressure 90/69 L Pulse
--- NOTE | 2021-07-10 13:26 | PC.NURSE ---
This patient, Cristobal Wiley, was transferred to [facility] on 07/10/21 at 1324. Personal belongings sent with patient. Report given to Natalie BOUDREAUX at 1245. Appropriate documentation sent with patient.
--- NOTE | 2021-07-10 13:29 | PC.NURSE ---
This patient, Cristobal Wiley, was received from [ [id number]] on 07/10/21 at 1325. Patient/family oriented to unit policies and routines
[2021-07-10] MEDS: ENOXAPARIN 40 MG/0.4 ML SYRINGE SUB-Q (20:56)
[2021-07-11] VITALS (7 sets, daily range): BP systolic 121–125; BP diastolic 77–82; PULSE 67–87; RESP 16–17; TEMP 36.4–37.2; O2SAT 96–98
[2021-07-11] MEDS: chlordiazePOXIDE (*CRX) 25 MG CAPSULE 50 MG PO ×3 (00:18→12:50)
--- NOTE | 2021-07-11 08:23 | PCOTNOTE ---
Attempted to see patient this AM, patient currently eating breakfast will attempt again this date to continue POC frequency.
[2021-07-11] MEDS: PANTOPRAZOLE SODIUM IV 40 MG VIAL IV PUSH (09:01)
[2021-07-11] MEDS: ARIPiprazole 5 MG TABLET 15 MG PO (09:01)
[2021-07-11] MEDS: THIAMINE HCL 100 MG TABLET PO (09:02)
[2021-07-11] MEDS: MULTIVITAMINS THERAPEUTIC TAB (*BKC) 1 TABLET PO (09:02)
[2021-07-11] MEDS: ASCORBIC ACID 500 MG TABLET PO (09:02)
[2021-07-11] MEDS: PROPRANOLOL HCL 10 MG TABLET PO (10:38)
[2021-07-11] MEDS: FOLIC ACID 1 MG TABLET PO (10:38)
--- NOTE | 2021-07-11 12:01 | PM.DS ---
DS: Admitting Diagnosis Discharge Date 07/11/21 Admitting Diagnosis Anxiety DS: Discharge Diagnosis Discharge Diagnosis (1) Acute respiratory failure: Code(s): J96.00 - Acute respiratory failure, unspecified whether with hypoxia or hypercapnia Status: Acute Assessment and Plan: Patient presented with hallucinations, delusions and flight of ideas. Concern for alcohol withdrawal and/or psychiatric condition. He was started on Precedex infusion for worsening confusion but developed sonorous respirations and was intubated for airway protection on 07/05/21. Patient was stabilized and remained stable on mechanical ventilation. He was weaned to minimal settings. He was weaned down on sedation. He was able to be extubated on 07/07/2021 successfully. He was weaned to room air and remained stable through out the remainder of his stay. [employer] consulted and appreciate their input.w (2) Alcohol abuse with withdrawal: Code(s): F10.139 - Alcohol abuse with withdrawal, unspecified Status: Acute Assessment and Plan: Patient presented with hallucinations with concern for alcohol withdrawal since he had tremors, delusions and flight of idea. UDS was positive for amphetamines and cannabinoids. Patient was placed on Precedex with good results. He was monitored using CIWA protocol and did require Ativan on occasion. He was started on Thiamine, folate and Librium. He was weaned off Precedex. Symptoms resolved. (3) Fever: Code(s): R50.9 - Fever, unspecified Status: Acute Assessment and Plan: Patient was having fevers on 07/06 and 07/07. UA not consistent with UTI. CXR on admission showing left medial basal airspace disease. Blood and Urine cultures negative. Repeat Chest x-ray showed scattered segmental bibasilar airspace disease. Could be aspiration PNA vs atelectasis. We held on abx since the fevers resolved and WBC remained normal. Sputum culture did return later positive for heavy growth of MSSA. Patient developed whelps with PCN when he was a child. He is still having a cough but no pleuritic chest pain or fevers. Discussed with hands parter and it was decided to treat for possible PNA. Levaquin chosen given concern for aspiration as well. QTc 414. Side effects discussed. (4) Elevated liver enzymes: Code(s): R74.8 - Abnormal levels of other serum enzymes Status: Acute Assessment and Plan: Elevated liver enzymes with AST peaking at 274 and ALT peaking at 198. Hepatitis panel negative. Abdominal US showing hepatic steatosis. 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 LFTs trended downward but up again toward the end of his hospital course. Continue to monitor as outpatient. (5) Depression: Code(s): F32.A - Depression, unspecified Status: Acute Assessment and Plan: Patient history of PTSD, ADD and hypomanic bipolar II disorder listed in his PMH. He was on Abilify 10mg when his psychiatrist increased him to 20mg but he could not tolerate due to night terrors so he was decreased to 15mg which he has been able to tolerate. We were able to resume Abilify (6) Alcoholism: Code(s): F10.20 - Alcohol dependence, uncomplicated Status: Acute Assessment and Plan: As above. He was educated about the benefits of abstaining from alcohol. Plan for patient to attend alcohol rehab center. (7) Agitation: Code(s): R45.1 - Restlessness and agitation Status: Acute Assessment and Plan: Related to above. Remaining calm now. DS: Summary Hospital Course Reason for hospitalization: 40yo male with bipolar disorder and alcoholism here for auditory hallucinations that progressed to confusion, tremors and diaphoresis requiring intubation and sedation. Please see H&P for details. Hospital Course: Please see above for details of hospital course. Status at Discharge Cognitive/behavioral status at discharge: Stab
[2021-07-11] MEDS: levoFLOXacin 750 MG TABLET PO (12:50)
== END 2021-07-11 15:05 | disposition home or self-care (01) | DRG 896 ==
LOC: ANHED 13:10 → ANHICU 19:16 → ANH3MEDSUR 07-11 12:16 → ANHICU 07-12 18:02
PROVIDERS: Internal Medicine; Nurse Practitioner Adult Health; Admitting Provider Family Medicine; Emergency Provider Emergency Medicine; PCP Family Medicine; Visit Provider Internal Medicine
DX: F10.231 Alcohol dependence with withdrawal delirium (principal); J96.00 Acute respiratory failure, unspecified whether with hypoxia or hypercapnia; J69.0 Pneumonitis due to inhalation of food and vomit; F31.81 Bipolar II disorder; J98.11 Atelectasis; B95.61 Methicillin susceptible Staphylococcus aureus infection as the cause of diseases classified elsewhere; G25.2 Other specified forms of tremor; R45.1 Restlessness and agitation; Z20.822 Contact with and (suspected) exposure to COVID-19; K70.9 Alcoholic liver disease, unspecified; K76.0 Fatty (change of) liver, not elsewhere classified; F41.9 Anxiety disorder, unspecified; F98.8 Other specified behavioral and emotional disorders with onset usually occurring in childhood and adolescence; N40.1 Benign prostatic hyperplasia with lower urinary tract symptoms; K58.9 Irritable bowel syndrome, unspecified; Z87.891 Personal history of nicotine dependence
CPT/HCPCS: 31500; 36415; 36600; 70450; 71045; 80053; 80307; 81001; 82140; 82375; 82805; 82948; 83050; 83690; 83735; 84100; 84443; 85025; 85610; 85730; 86140; 87040; 87070; 87086; 87147; 87186; 87205; 93005; 94002; 94003; 96361; 96372; 96374; 96375; 96376; 97110; 97116; 97161; 97165; 97535; 99285; A9270; C9113; C9803; J0330; J0360; J1630; J1650; J2060; J2250; J2704; J3010; J3411; J7030; U0003; U0005